=== PATIENT | male | born 1995 | race Hispanic/Latino ===

== ENCOUNTER 2017-12-02 12:13 | Emergency (ER) | payer SELFPAY ==
[2017-12-02] MEDS ORDERED: MAGNE/ALUM HYDROXD 30 ML UCUP ONE (12:43)
[2017-12-02] MEDS ORDERED: LIDOCAINE VISCOUS 2% SOLN 15 ML UDC ONE (12:43)
[2017-12-02] MEDS ORDERED: FAMOTIDINE 20 MG/2 ML VIAL IV ONE (12:43)
[2017-12-02 13:11] LABS: Absolute Lymphocytes (CBC) 1.4 K/uL (0.7-4.9); Absolute Monocytes 0.4 K/uL (0.1-1.3); Absolute Neutrophil 2.5 K/uL (1.8-8.0); Basophils % 0.7 % (0-1.3); Eosinophils % 4.3 % (0-4.4); Hematocrit 46.2 % (39.6-49.0); Lymphocytes % 30.4 % (15.3-44.8); MCV 88.6 fL (80-100); MPV 7.3 fL (7.6-11.3); Monocytes % 8.3 % (3.3-12.3); RBC Red Blood Cell Count 5.22 M/uL (4.33-5.43)
[2017-12-02 13:32] LABS: Albumin 3.7 g/dL (3.4-5.0); Bilirubin Total 0.4 mg/dL (0.2-1.0); Potassium 4.3 mmol/L (3.5-5.1); Protein, Total 7.6 g/dL (6.4-8.2)
--- NOTE | 2017-12-02 13:52 | RAD REPORT ---
EXAM DESCRIPTION: RAD - Chest Single View - 12/02/2017 1:24 pm CLINICAL HISTORY: CHEST PAIN Chest pain. COMPARISON: <Comparisons> FINDINGS: Portable technique limits examination quality. The lungs are grossly clear. The heart is normal in size. No displaced fractures. IMPRESSION: No acute intrathoracic process suspected.
[2017-12-02 15:21] LABS: Urine Blood NEGATIVE (NEG); Urine Glucose NEGATIVE (NEG); Urine Protein NEGATIVE (NEG)
[2017-12-02 15:23] LABS: Barbiturates NEGATIVE (NEGATIVE); Benzodiazepines NEGATIVE (NEGATIVE); Cocaine NEGATIVE (NEGATIVE); METHAMPHETAM NEGATIVE (NEGATIVE); Methadone NEGATIVE (NEGATIVE); Opiates NEGATIVE (NEGATIVE); Phencyclidine NEGATIVE (NEGATIVE); THC Cannibis NEGATIVE (NEGATIVE)
--- NOTE | 2017-12-02 15:50 | ER ---
Nurse's Notes [facility] Name: Coleen Haque III Age: 22 yrs Sex: Male : 1995 Arrival Date: 12/02/2017 Time: 12:15 Bed 16 Private MD: Diagnosis: Other chest pain Presentation: 12/02 12:18 Presenting complaint: Patient states: Sternal chest pain and throat pain since aj night, worse with deep breathing. Transition of care: patient was not received from another setting of care. Onset of symptoms was November 30, 2017. Risk Assessment: Do you want to hurt yourself or someone else? Patient reports no desire to harm self or others. Initial Sepsis Screen: Does the patient meet any 2 criteria? No. Patient's initial sepsis screen is negative. Does the patient have a suspected source of infection? No. Patient's initial sepsis screen is negative. Care prior to arrival: None. 12:18 Method Of Arrival: Ambulatory aj 12:18 Acuity: SYDNIE 4 aj Triage Assessment: 12:19 General: Appears in no apparent distress. comfortable, Behavior is calm, cooperative, aj appropriate for age. Pain: Complains of pain in mid-sternal area. Neuro: Level of Consciousness is awake, alert, obeys commands, Oriented to person, place, time, situation, Appropriate for age. Cardiovascular: Capillary refill < 3 seconds in bilateral fingers Patient's skin is warm and dry. Respiratory: Airway is patent Respiratory effort is even, unlabored, Respiratory pattern is regular, symmetrical. Respiratory: Reports pain with respiration. Derm: Skin is intact, is healthy with good turgor, Skin is pink, warm \T\ dry. normal. Historical: - Allergies: 12:19 No Known Allergies; aj - Home Meds: 12:19 None [Active]; aj - PMHx: 12:19 None; aj - PSHx: 12:19 Knee surgery; aj - Immunization history:: Adult Immunizations up to date. - Social history:: Smoking status: Patient/guardian denies using tobacco, Patient/guardian denies using street drugs, IV drugs. - Ebola Screening: : Patient negative for fever greater than or equal to 101.5 degrees Fahrenheit, and additional compatible Ebola Virus Disease symptoms Patient denies exposure to infectious person Patient denies travel to an Ebola-affected area in the 21 days before illness onset No symptoms or risks identified at this time. - Family history:: Mother has/had diabetes, Grandfather has/had [place] as an older adult. no significant cardiac hx other than grandfather. Screenin:25 Abuse screen: Denies threats or abuse. Denies injuries from another. Nutritional iw screening: No deficits noted. Tuberculosis screening: No symptoms or risk factors identified. Fall Risk IV access (20 points). Assessment: 12:25 General: Appears in no apparent distress. comfortable, Behavior is calm, cooperative, rb1 Denies fever. Pain: Complains of pain in mid-sternal area Pain does not radiate. Pain currently is 5 out of 10 on a pain scale. Pain began Aggravated by pain with respiration. Neuro: Level of Consciousness is awake, alert, obeys commands, Oriented to person, place, time, situation. Neuro: Denies dizziness. Cardiovascular: Capillary refill < 3 seconds is brisk in bilateral fingers. Respiratory: Airway is patent Respiratory effort is even, unlabored, Respiratory pattern is regular, symmetrical. Respiratory: Reports pain with respiration Pain is 5 out of 10 on a pain scale. Denies shortness of breath. GI: Reports nausea, since Acid reflux Patient currently denies diarrhea. : No signs and/or symptoms were reported regarding the genitourinary system. Derm: Skin is dry, Skin is normal, Skin temperature is warm. 13:20 Reassessment: Patient appears in no apparent distress at this time. Patient and/or rb1 family updated on plan of care and expected duration. Pain level reassessed. Patient is alert, oriented x 3, equal unlabored respirations, skin warm/dry/pink. Patient states feeling better. 14:18 Reassessment: Patient appears in no apparent distress at this time. No changes from rb1 previously documented assessment. Friend at bedside. 15:15 Reassessment: Patient appears in no apparent distress at this time. Patient and/or rb1 family updated on plan of care and expected duration. Pain level reassessed. Patient is alert, oriented x 3, equal unlabored respirations, skin warm/dry/pink. 16:13 Reassessment: Patient appears in no apparent distress at this time. Patient and/or iw family updated on plan of care and expected duration. Pain level reassessed. Patient is alert, oriented x 3, equal unlabored respirations, skin warm/dry/pink. Vital Signs: 12:19 BP 144 / 86; Pulse 87; Resp 16; Temp 98.5; Pulse Ox 98% on R/A; Weight 88.45 kg; Height aj 5 ft. 10 in. (177.80 cm); 13:15 BP 124 / 81; Pulse 70; Resp 16; Pulse Ox 98% on R/A; rb1 14:15 BP 122 / 91; Pulse 75; Resp 16; Pulse Ox 99% on R/A; rb1 15:15 BP 106 / 72; Pulse 60; Resp 16; Pulse Ox 99% on R/A; rb1 16:10 BP 121 / 78; Pulse 68; Resp 17; Pulse Ox 100% on R/A; rb1 12:19 Body Mass Index 27.98 (88.45 kg, 177.80 cm) aj ED Course: 12:15 Patient arrived in ED. as 12:19 Triage completed. aj 12:19 Arm band placed on right wrist. Patient placed in an exam room. aj 12:22 Sanjana Yancey NP is PHCP. rh1 12:22 Raul Mae MD is Attending Physician. rh1 12:35 Bell Gonzalez, RN is Primary Nurse. rb1 12:40 EKG done, by ED staff, reviewed by Sanjana Yancey NP. dh3 12:46 Initial lab(s) drawn, by pr, sent to lab. Inserted saline lock: 20 gauge in right dh3 antecubital area, using aseptic technique. Blood collected. 13:24 Chest Single View XRAY In Process Unspecified. EDMS 15:36 UDS Sent. rb1 16:00 Patient has correct armband on for positive identification. secured entrance monitor on. iw 16:26 No provider procedures requiring assistance completed. IV discontinued, intact, iw bleeding controlled, No redness/swelling at site. Pressure dressing applied. Patient maintains SpO2 saturation greater than 95% on room air. Administered Medications: 12:43 Drug: Pepcid 20 mg Route: IVP; Site: right antecubital; rb1 13:00 Follow up: Response: No adverse reaction rb1 12:43 Drug: GI Cocktail without - (Maalox Suspension 30 ml, Lidocaine Liquid 2 % 15 rb1 ml) Route: PO; 13:05 Follow up: Response: No adverse reaction; Marked relief of symptoms rb1 Outcome: 15:50 Discharge ordered by . rh1 16:25 Discharged to home ambulatory, with family. 16:25 Condition: good 16:25 Discharge instructions given to patient, family, Instructed on discharge instructions, follow up and referral plans. Demonstrated understanding of instructions, follow-up care. 16:27 Patient left the ED. iw Signatures: Dispatcher [employer] EDNatividad Barbosa RN RN aj Martinez, Amelia as Williams, Irene, RN RN iw Sanjana Yancey, FILM TESTS CHECKER FILM TESTS CHECKER 1 Bell Gonzalez RN RN [facility] Darshana Baer [facility] Corrections: (The following items were deleted from the chart) 12:41 12:19 Social history: Smoking status: Patient/guardian denies using tobacco, eduard 1
--- NOTE | 2017-12-02 15:51 | EDPHYS ---
Physician Documentation [facility] Name: Coleen Haque III Age: 22 yrs Sex: Male : 1995 Arrival Date: 12/02/2017 Time: 12:15 Bed 16 Private MD: ED Physician Raul Mae HPI: 12/02 12:33 This 22 yrs old Male presents to ER via Ambulatory with complaints of Chest rh1 Pain. 12:33 Onset: The symptoms/episode began/occurred 3 day(s) ago, and became worse 2 day(s) ago. rh1 Associated signs and symptoms: Pertinent positives: chest pain, Pertinent negatives: abdominal pain, congestion, constipation, cough, diarrhea, dysuria, fever, nasal discharge, shortness of breath, sore throat, vomiting, wheezing. Modifying factors: The patient symptoms are alleviated by "acid reflux medicine", the patient symptoms are aggravated by deep inspiration. The patient has not experienced similar symptoms in the past. The patient has not recently seen a physician. 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 He was given a medication for "acid reflux" which relieved the pain. His pain returned yesterday morning and has been constant since. His pain is increased with deep inspiration. He does not have any sore throat, odynophagia, dysphagia. He denies any SOB, diaphoresis, N/V, abdominal pain, paresthesias, recent illness.. Historical: - Allergies: 12:19 No Known Allergies; aj - Home Meds: 12:19 None [Active]; aj - PMHx: 12:19 None; - PSHx: 12:19 Knee surgery; aj - Immunization history:: Adult Immunizations up to date. - Social history:: Smoking status: Patient/guardian denies using tobacco, Patient/guardian denies using street drugs, IV drugs. - Ebola Screening: : Patient negative for fever greater than or equal to 101.5 degrees Fahrenheit, and additional compatible Ebola Virus Disease symptoms Patient denies exposure to infectious person Patient denies travel to an Ebola-affected area in the 21 days before illness onset No symptoms or risks identified at this time. - Family history:: Mother has/had diabetes, Grandfather has/had [place] as an older adult. no significant cardiac hx other than grandfather. ROS: 12:33 Constitutional: Negative for fever, chills rh1 12:33 ENT: Negative for sore throat, difficulty swallowing, difficulty handling secretions, hoarseness. 12:33 Neck: Negative for pain with movement, pain at rest. 12:33 Cardiovascular: Positive for chest pain, Negative for edema, orthopnea, palpitations. 12:33 Respiratory: Negative for cough, dyspnea on exertion, shortness of breath, wheezing. 12:33 Abdomen/GI: Negative for abdominal pain, nausea, vomiting, and diarrhea. 12:33 Back: Negative for decreased range of motion, pain at rest, pain with movement, radiated pain. 12:33 MS/extremity: Negative for decreased range of motion, pain, paresthesias, swelling, tenderness. 12:33 Skin: Negative for diaphoresis. 12:33 Neuro: Negative for altered mental status, dizziness, headache, loss of consciousness, numbness, syncope, near syncope, tingling, weakness. Exam: 12:39 Constitutional: This is a well developed, well nourished patient who is awake, alert, rh1 and in no acute distress. Head/Face: Normocephalic, atraumatic. Neck: Trachea midline, and no cervical lymphadenopathy. Supple, full range of motion without nuchal rigidity. No Meningismus. Chest/axilla: Normal chest wall appearance and motion. Nontender with no deformity. No lesions are appreciated. Cardiovascular: Regular rate and rhythm with a normal S1 and S2. No gallops, murmurs, or rubs. No JVD. No pulse deficits. Respiratory: Lungs have equal breath sounds bilaterally, clear to auscultation. No rales, rhonchi or wheezes noted. No increased work of breathing. Abdomen/GI: Soft, non-tender, with normal bowel sounds. No distension. No guarding or rebound. No evidence of tenderness throughout. Back: No spinal tenderness. No costovertebral tenderness. Full range of motion. Skin: Warm, dry with normal turgor. Normal color with no rashes, no lesions, and no evidence of cellulitis. MS/ Extremity: Pulses equal, no cyanosis. Neurovascular intact. Full, normal range of motion. 12:39 ENT: Mouth: is normal, no lip abnormalities, no mucosal abnormalities, Posterior pharynx: is normal, airway is patent, no erythema, no exudate, no peritonsilar mass, no pooling of secretions, no swelling, normal tonsil apperance, normal sized tonsils, normal uvula appearance, normal uvula size, tonsils 2+ bilaterally, Voice: is normal. 12:39 Neuro: Orientation: is normal, to person, place \\T\\ time. Mentation: is normal, lucid, able to follow commands, Motor: is normal, moves all fours, strength is 5/5 in all extremities, Sensation: is normal, no obvious gross deficits, numbness, is not appreciated, tingling, is not appreciated, Gait: is steady, at a normal pace, without difficulty. Vital Signs: 12:19 BP 144 / 86; Pulse 87; Resp 16; Temp 98.5; Pulse Ox 98% on R/A; Weight 88.45 kg; Height aj 5 ft. 10 in. (177.80 cm); 13:15 BP 124 / 81; Pulse 70; Resp 16; Pulse Ox 98% on R/A; rb1 14:15 BP 122 / 91; Pulse 75; Resp 16; Pulse Ox 99% on R/A; rb1 15:15 BP 106 / 72; Pulse 60; Resp 16; Pulse Ox 99% on R/A; rb1 16:10 BP 121 / 78; Pulse 68; Resp 17; Pulse Ox 100% on R/A; rb1 12:19 Body Mass Index 27.98 (88.45 kg, 177.80 cm) aj MDM: 12:32 Patient medically screened. rh1 12:42 ED course: PERC = 0. rh1 15:49 Data reviewed: vital signs, nurses notes, lab test result(s), EKG, radiologic studies, rh1 plain films, and as a result, I will discharge patient. Special discussion: Based on the patient's history, exam, and Dx evaluation, there is no indication for emergent intervention or inpatient Tx. It is understood by the patient/guardian that if the Sx's persist or worsen they need to return immediately for re-evaluation. 15:49 Data interpreted: Pulse oximetry: on room air is 99 %. Interpretation: normal. rh1 Counseling: I had a detailed discussion with the patient and/or guardian regarding: the historical points, exam findings, and any diagnostic results supporting the discharge/admit diagnosis, lab results, radiology results, the need for outpatient follow up, a family practitioner, to return to the emergency department if symptoms worsen or persist or if there are any questions or concerns that arise at home. 15:49 Response to treatment: the patient's symptoms have resolved after treatment, the 1 patient's pain is gone. 12/02 12:31 Order name: CBC with Diff [facility] 12/02 12:31 Order name: CMP [facility] 12/02 12:31 Order name: Troponin (emerg Dept Use Only) [facility] 12/02 12:31 Order name: UDS [facility] 12/02 12:31 Order name: CBC with Automated Diff; Complete Time: 13:24 [facility] 12/02 12:31 Order name: Comprehensive Metabolic Panel; Complete Time: 13:34 [facility] 12/02 12:31 Order name: Chest Single View XRAY; Complete Time: 13:57 [facility] 12/02 12:31 Order name: EKG - Nurse/Tech; Complete Time: 12:36 [facility] 12/02 12:31 Order name: IV Start; Complete Time: 12:47 [facility] 12/02 12:31 Order name: Troponin (Emerg Dept Use Only); Complete Time: 13:34 [facility] 12/02 12:31 Order name: Urine Drug Screen; Complete Time: 15:30 [facility] 12/02 15:12 Order name: Urine Dipstick--Ancillary (enter results); Complete Time: 15:30 12/02 12:31 Order name: Cardiac monitoring; Complete Time: 12:47 [facility] 12/02 13:57 Order name: Misc. Order: please obtain urine; Complete Time: 15:36 [facility] Administered Medications: 12:43 Drug: Pepcid 20 mg Route: IVP; Site: right antecubital; rb1 13:00 Follow up: Response: No adverse reaction rb1 12:43 Drug: GI Cocktail without - (Maalox Suspension 30 ml, Lidocaine Liquid 2 % 15 rb1 ml) Route: PO; 13:05 Follow up: Response: No adverse reaction; Marked relief of symptoms rb1 Disposition: 17:12 Co-signature as Attending Physician, Raul Mae MD I agree with the assessment and kdr plan of care. Disposition: 12/02/17 15:50 Discharged to Home. Impression: Other chest pain. - Condition is Stable. - Discharge Instructions: Nonspecific Chest Pain. - Work release form, Medication Reconciliation Form, Thank You Letter, Antibiotic Education, Prescription Opioid Use form. - Follow up: Private Physician; When: 1 - 2 days; Reason: Recheck today's complaints, Continuance of care, Re-evaluation by your physician. Follow up: Emergency Department; When: As needed; Reason: Fever > 102 F, If symptoms return, Trouble breathing, Worsening of condition. - Problem is new. - Symptoms are resolved. 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 He was given a medication for "acid reflux" which relieved the pain. His pain returned yesterday morning and has been constant since. His pain is increased with deep inspiration. He denies any SOB, diaphoresis, N/V, abdominal pain, paresthesias, recent illness.. [facility] 12:41 12:19 Social history: Smoking status: Patient/guardian denies using tobacco, [facility] 15:56 15:49 Data interpreted: Pulse oximetry: on room air is 99 %. Interpretation: normal. [facility] 15:56 15:49 Counseling: I had a detailed discussion with the patient and/or guardian [facility] regarding: the historical points, exam findings, and any diagnostic results supporting the discharge/admit diagnosis, lab results, radiology results, the need for outpatient follow up, a family practitioner, to return to the emergency department if symptoms worsen or persist or if there are any questions or concerns that arise at home, [facility] 16:27 15:50 12/02/2017 15:50 Discharged to Home. Impression: Other chest pain. Condition is iw Stable. Forms are Medication Reconciliation Form, Thank You Letter, Antibiotic Education, Prescription Opioid Use. Follow up: Private Physician; When: 1 - 2 days; Reason: Recheck today's complaints, Continuance of care, Re-evaluation by your physician. Follow up: Emergency Department; When: As needed; Reason: Fever > 102 F, If symptoms return, Trouble breathing, Worsening of condition. Problem is new. Symptoms are resolved. rh1
--- NOTE | 2017-12-03 09:34 | EKG ---
Test Date: 2017-12-02 Test Time: 12:33:20 Academic Advisor: MARIS MEASUREMENT RESULTS: Intervals: Rate: 69 OR: 134 QRSD: 88 QT: 370 QTc: 396 [place]: P: 31 OR: 134 QRS: 58 T: 18 INTERPRETIVE STATEMENTS: Normal sinus rhythm Nonspecific T wave abnormality Abnormal ECG No previous ECG available for comparison Electronically Signed On 12-03-17 09:33:33 CDT by Orion Faith
== END 2017-12-02 16:27 | disposition home or self-care (01) ==
LOC: ER 12:13
DX: R07.89 Other chest pain (principal)
CPT/HCPCS: 36415; 71045; 80053; 80307; 81003; 84484; 85025; 93005; 96374; 99285

== ENCOUNTER 2017-12-31 10:58 | Emergency (ER) | payer SELFPAY ==
[2017-12-31] MEDS ORDERED: BUPIVACAINE 0.5% PF 10 ML VIAL ONE (13:27)
--- NOTE | 2017-12-31 15:28 | EDPHYS ---
Physician Documentation [facility] Name: Coleen Haque III Age: 22 yrs Sex: Male : 1995 Arrival Date: 12/31/2017 Time: 11:00 Bed 12 Private MD: None, None ED Physician Sabas Kaplan HPI: 12/31 13:16 This 22 yrs old Male presents to ER via Ambulatory with complaints of TOE PAIN.m 13:16 The patient presents with pain, that is acute. The complaints affect the Left first jmm toenail. Onset: The symptoms/episode began/occurred gradually, 3 day(s) ago. Associated signs and symptoms: Pertinent positives: swelling. This is a 22 year old male with no chronic medical conditions that presents to the ED with right great toe swelling around the nail plate beginning approx 3 days ago. patient denies fever but admits to purulent drainage. . Historical: - Allergies: 11:38 No Known Allergies; ph - Home Meds: 11:38 None [Active]; ph - PMHx: 11:38 None; ph - PSHx: 11:38 ACL repair; Appendectomy; ph - Immunization history:: Adult Immunizations up to date. - Social history:: Smoking status: Patient/guardian denies using tobacco. - Ebola Screening: : No symptoms or risks identified at this time. ROS: 13:16 Constitutional: Negative for fever, chills, and weight loss. jmm 13:16 MS/extremity: Positive for pain. 13:16 Skin: Positive for erythema. 13:16 All other systems are negative. Exam: 13:16 Head/Face: atraumatic. Chest/axilla: Normal chest wall appearance and motion. [facility] Cardiovascular: Regular rate and rhythm. No edema appreciated Respiratory: Normal respirations, no respiratory distress appreciated 13:16 Constitutional: The patient appears in no acute distress, alert, awake. 13:16 Musculoskeletal/extremity: ROM: intact in all extremities. 13:16 Skin: erythema noted surrounding the right great toe nail plate, no purulent drainage is appreciated. . 13:16 Neuro: Orientation: is normal, Mentation: is normal, Memory: is normal. 13:16 Psych: Behavior/mood is pleasant, cooperative. Vital Signs: 11:37 BP 125 / 86; Pulse 88; Resp 18; Temp 97.6(O); Pulse Ox 98% on R/A; Weight 88.45 kg; ph Height 5 ft. 10 in. (177.80 cm); Pain 10/10; 15:45 BP 120 / 84; Pulse 78; Resp 20; Temp 98; Pulse Ox 98% ; Pain 3/10; dm5 11:37 Body Mass Index 27.98 (88.45 kg, 177.80 cm) ph Procedures: 15:24 Nerve block: (digital) of right first toe Amount: 5 mls were injected, Set up for [facility] procedure. Performed by Agusto KC Patient tolerated well. Performed toenail removal. scissors used to cut through nail plate. Partial nail removal using hemostats. MDM: 13:09 Patient medically screened. [facility] 15:27 Data reviewed: vital signs, nurses notes. Counseling: I had a detailed discussion with [facility] the patient and/or guardian regarding: the historical points, exam findings, and any diagnostic results supporting the discharge/admit diagnosis, the need for outpatient follow up, to return to the emergency department if symptoms worsen or persist or if there are any questions or concerns that arise at home. Administered Medications: 14:30 Drug: Marcaine (0.5 %) 20 ml Volume: 10 ml; Route: Infiltration; rosalee Disposition: 01/01 06:48 Co-signature as Attending Physician, Sabas Kaplan MD I agree with the assessment and [facility] plan of care. Disposition: 12/31/17 15:28 Discharged to Home. Impression: Ingrown Toenail, Cellulitis of the right great toe. - Condition is Stable. - Discharge Instructions: Ingrown Toenail. - Prescriptions for Ultracet 37.5- 325 mg Oral Tablet - take 1 tablet by ORAL route every 6 hours - for up to 5 days; do not exceed 8 tablets per day.; 12 tablet. Bactrim DS 800- 160 mg Oral Tablet - take 1 tablet by ORAL route every 12 hours for 10 days; 20 tablet. - Work release form, Medication Reconciliation Form, Thank You Letter, Antibiotic Education, Prescription Opioid Use form. - Follow up: Rafael Rg DPM; When: 1 - 2 days; Reason: Recheck today's complaints, Continuance of care, Re-evaluation by your physician. Signatures: Juliana Damico, NED MARINO dm5 Sabas Kaplan MD MD cha Mickail, Joel, PA PA [facility] Nela Kellogg, RN RN ph Corrections: (The following items were deleted from the chart) 12/31 15: 13:16 This is a 22 year old male with no chronic medical conditions that presents to [facility] the ED with left great toe swelling around the nail plate beginning approx 3 days ago. patient denies fever but admits to purulent drainage. . [facility] : 13:16 Skin: erythema noted surrounding the left great toe nail plate, no purulent [facility] drainage is appreciated. . [facility] 15:46 15:28 12/31/2017 15:28 Discharged to Home. Impression: Ingrown Toenail; Cellulitis of dm5 the right great toe. Condition is Stable. Forms are Medication Reconciliation Form, Thank You Letter, Antibiotic Education, Prescription Opioid Use. Follow up: Dr. Rafael gR; When: 1 - 2 days; Reason: Recheck today's complaints, Continuance of care, Re-evaluation by your physician. [facility]
--- NOTE | 2017-12-31 15:28 | ER ---
Nurse's Notes [facility] Name: Coleen Haque III Age: 22 yrs Sex: Male : 1995 Arrival Date: 12/31/2017 Time: 11:00 Bed 12 Private MD: None, None Diagnosis: Ingrown Toenail;Cellulitis of the right great toe Presentation: 12/31 11:36 Presenting complaint: Patient states: " I had an ingrown toenail on my R foot and a few ph days ago I tried to take it off. Now I think it's infected, it's red and swollen and there is puss coming out." Reports symptoms in R great toe, denies fever, N/V/D. Transition of care: patient was not received from another setting of care. Onset of symptoms was December 31, 2017. Risk Assessment: Do you want to hurt yourself or someone else? Patient reports no desire to harm self or others. Initial Sepsis Screen: Does the patient meet any 2 criteria? No. Patient's initial sepsis screen is negative. Does the patient have a suspected source of infection? No. Patient's initial sepsis screen is negative. Care prior to arrival: None. 11:36 Method Of Arrival: Ambulatory ph 11:36 Acuity: SYDNIE 4 ph Historical: - Allergies: 11:38 No Known Allergies; ph - Home Meds: 11:38 None [Active]; ph - PMHx: 11:38 None; ph - PSHx: 11:38 ACL repair; Appendectomy; ph - Immunization history:: Adult Immunizations up to date. - Social history:: Smoking status: Patient/guardian denies using tobacco. - Ebola Screening: : No symptoms or risks identified at this time. Screenin:45 Abuse screen: Denies threats or abuse. Denies injuries from another. Nutritional dm5 screening: No deficits noted. Tuberculosis screening: No symptoms or risk factors identified. Fall Risk None identified. Assessment: 13:20 General: Appears in no apparent distress. Behavior is calm, cooperative. Pain: dm5 Complains of pain in Right first toenail. Cardiovascular: Reports None. Respiratory: Airway is patent Respiratory effort is even, unlabored, relaxed, Respiratory pattern is regular. Musculoskeletal: Swelling absent Reports pain in Right first toenail. Vital Signs: 11:37 BP 125 / 86; Pulse 88; Resp 18; Temp 97.6(O); Pulse Ox 98% on R/A; Weight 88.45 kg; ph Height 5 ft. 10 in. (177.80 cm); Pain 10/10; 15:45 BP 120 / 84; Pulse 78; Resp 20; Temp 98; Pulse Ox 98% ; Pain 3/10; dm5 11:37 Body Mass Index 27.98 (88.45 kg, 177.80 cm) ph ED Course: 11:00 Patient arrived in ED. sb2 11:01 None, None is Private Physician. sb2 11:37 Triage completed. ph 11:38 Arm band placed on Patient placed in waiting room, Patient notified of wait time. 13:08 Agusto Narayanan PA is [facility]. [facility] 13:08 Sabas Kaplan MD is Attending Physician. [facility] 13:20 Juliana Damico, RN is Primary Nurse. dm5 15:27 Rafael Rg DPM is Referral Physician. [facility] 15:45 Patient has correct armband on for positive identification. dm5 15:45 No provider procedures requiring assistance completed. Patient did not have IV access dm5 during this emergency room visit. Administered Medications: 14:30 Drug: Marcaine (0.5 %) 20 ml Volume: 10 ml; Route: Infiltration; dm5 Outcome: 15:28 Discharge ordered by . [facility] 15:45 Discharged to home ambulatory. dm5 15:45 Condition: good 15:45 Discharge instructions given to patient, Instructed on discharge instructions, follow up and referral plans. medication usage, Demonstrated understanding of instructions, follow-up care, medications, wound care, Prescriptions given X 2. 15:46 Patient left the ED. dm5 Signatures: Juliana Damico, RN RN Agusto Almanzar PA PA jmm Hall, Patricia RN RN Nataliya Hernandez sb2 Corrections: (The following items were deleted from the chart) 11:38 11:38 Arm band placed on Patient placed in an exam room, Patient notified of wait time ph ph
== END 2017-12-31 15:46 | disposition home or self-care (01) ==
LOC: ER 10:58
PROC: 0HBRXZZ Excision of Toe Nail, External Approach (ICD-10-PCS; principal; 2017-12-31)
DX: L60.0 Ingrowing nail (principal)
CPT/HCPCS: 64450; 99283

== ENCOUNTER 2018-01-05 21:22 | Emergency (ER) | payer SELFPAY ==
[2018-01-05] MEDS ORDERED: IBUPROFEN 400 MG TAB ONE (21:57)
--- NOTE | 2018-01-05 23:02 | EDPHYS ---
Physician Documentation [facility] Name: Coleen Haque III Age: 22 yrs Sex: Male : 1995 Arrival Date: 01/05/2018 Time: 21:23 Bed 23 Private MD: ED Physician Sadiq Anaya HPI: 01/05 22:00 This 22 yrs old Male presents to ER via Ambulatory with complaints of Toe cp Injury. 22:00 The patient presents with a contusion, pain, that is acute. The complaints affect the cp right great toe. 22:00 Context: The problem was sustained at home, resulted from stubbing toe on the patient cp can fully bear weight, the patient is able to ambulate. Onset: The symptoms/episode began/occurred today. 22:00 Patient reports having partial nail removal of right great toe earlier this week. cp Historical: - Allergies: 21:33 No Known Allergies; aj1 - Home Meds: 21:33 Bactrim DS Oral [Active]; aj1 - PMHx: 21:33 None; aj1 - PSHx: 21:33 Appendectomy; acl repair; aj1 - Immunization history:: Flu vaccine is up to date. - Social history:: Smoking status: Patient/guardian denies using tobacco. - Ebola Screening: : Patient denies travel to an Ebola-affected area in the 21 days before illness onset. ROS: 22:05 Constitutional: Negative for body aches, chills, fever, poor PO intake. cp 22:05 Eyes: Negative for injury, pain, redness, and discharge. cp 22:05 ENT: Negative for drainage from ear(s), ear pain, sore throat, difficulty swallowing, difficulty handling secretions. 22:05 Respiratory: Negative for cough, shortness of breath, wheezing. 22:05 Abdomen/GI: Negative for abdominal pain, nausea, vomiting, and diarrhea. 22:05 MS/extremity: Positive for pain, tenderness, of the right great toe. 22:05 All other systems are negative. Exam: 22:10 Constitutional: The patient appears in no acute distress, alert, awake, well developed, cp well nourished. 22:10 Head/Face: Normocephalic, atraumatic. cp 22:10 Eyes: Periorbital structures: appear normal, Conjunctiva: normal, no exudate, no injection, Lids and lashes: appear normal, bilaterally. 22:10 ENT: External ear(s): are unremarkable, Nose: is normal, Mouth: is normal, Posterior pharynx: is normal, airway is patent. 22:10 Chest/axilla: Inspection: normal. 22:10 Cardiovascular: Rate: tachycardic, Edema: is not appreciated. 22:10 Respiratory: the patient does not display signs of respiratory distress, Respirations: normal, no use of accessory muscles, no retractions, no splinting, no tachypnea. 22:10 Musculoskeletal/extremity: Extremities: grossly normal except: noted in the right great toe: pain, swelling, tenderness, There is no evidence of erythema, cellulitis. Vital Signs: 21:31 Pulse 117; Resp 18; Temp 99.3(O); Pulse Ox 97% on R/A; Weight 88.45 kg (R); Height 5 aj1 ft. 10 in. (177.80 cm) (R); Pain 9/10; 22:30 BP 139 / 92; Pulse 112; Resp 18; Pulse Ox 98% ; Pain 8/10; cr4 23:22 BP 116 / 73; Pulse 97; Resp 16; Temp 98.6; Pulse Ox 97% ; Pain 6/10; cr4 21:31 Body Mass Index 27.98 (88.45 kg, 177.80 cm) aj1 MDM: 21:37 Patient medically screened. cp 22:00 Differential diagnosis: fracture, cellulitis, contusion. cp 23:00 Data reviewed: vital signs, nurses notes, radiologic studies, plain films. cp 23:00 Test interpretation: by ED physician or midlevel provider: plain radiologic studies. cp Counseling: I had a detailed discussion with the patient and/or guardian regarding: the historical points, exam findings, and any diagnostic results supporting the discharge/admit diagnosis, radiology results, to return to the emergency department if symptoms worsen or persist or if there are any questions or concerns that arise at home. Response to treatment: the patient's symptoms have mildly improved after treatment, and as a result, I will discharge patient. ED course: VSS. Xrays negative for acute fracture. Crutches given. Recommend RICE and will discharge to home for continued monitoring. 01/05 22:06 Order name: Foot Right 3 View EDMS 01/05 22:19 Order name: Ice pack; Complete Time: 22:37 cp 01/05 23:00 Order name: Wound dressing: clean and redress; Complete Time: 23:25 cp 01/05 23:00 Order name: Crutches; Complete Time: 23:25 cp Administered Medications: 21:54 Drug: Ibuprofen 800 mg Route: PO; rv 22:30 Follow up: Response: No adverse reaction; Pain is decreased cr4 Disposition: 01/05/18 23:01 Discharged to Home. Impression: Contusion of right great toe without damage to nail. - Condition is Stable. - Discharge Instructions: Contusion. - Prescriptions for Naprosyn 500 mg Oral Tablet - take 1 tablet by ORAL route 2 times per day take with food; 20 tablet. - Medication Reconciliation Form, Thank You Letter, Antibiotic Education, Prescription Opioid Use form. - Follow up: Private Physician; When: 2 - 3 days; Reason: Recheck today's complaints. - Problem is new. - Symptoms have improved. Addendum: 01/08/2018 10:16 Co-signature as Attending Physician, Sadiq Anaya MD. g s Signatures: Dispatcher [employer] EDDE Mariel Caban RN RN aj1 Ene Bobo RN RN cr4 Sabas Demarco PA PA Sadiq Anaya MD MD Yong Nichole RN RN rv Corrections: (The following items were deleted from the chart) 01/05 22:06 21:47 Foot Left 3 View+RAD.RAD.BRZ ordered. EDDE EDMS 22:08 22:00 Foot Right 3 View+RAD.RAD.BRZ ordered. EDDE EDMS 23:37 23:01 01/05/2018 23:01 Discharged to Home. Impression: Contusion of right great toe cr4 without damage to nail. Condition is Stable. Forms are Medication Reconciliation Form, Thank You Letter, Antibiotic Education, Prescription Opioid Use. Follow up: Private Physician; When: 2 - 3 days; Reason: Recheck today's complaints. Problem is new. Symptoms have improved. cp
--- NOTE | 2018-01-05 23:02 | ER ---
Nurse's Notes [facility] Name: Coleen Haque III Age: 22 yrs Sex: Male : 1995 Arrival Date: 01/05/2018 Time: 21:23 Bed 23 Private MD: Diagnosis: Contusion of right great toe without damage to nail Presentation: 01/05 21:31 Presenting complaint: Patient states: He had an ingrown toe nail removed and today when aj1 he got out of the shower and he hit his toe, which caused him a lot of pain and made him feel dizzy and his toe is still hurting. Denies fever. Transition of care: patient was not received from another setting of care. Onset of symptoms was January 05, 2018. Risk Assessment: Do you want to hurt yourself or someone else? Patient reports no desire to harm self or others. Initial Sepsis Screen: Does the patient meet any 2 criteria? No. Patient's initial sepsis screen is negative. Does the patient have a suspected source of infection? No. Patient's initial sepsis screen is negative. Care prior to arrival: None. 21:31 Method Of Arrival: Ambulatory [facility] 21:31 Acuity: SYDNIE 3 aj1 Triage Assessment: 21:33 General: Appears in no apparent distress. Behavior is calm, cooperative, appropriate aj1 for age. Pain: Complains of pain in Right first toenail Pain currently is 9 out of 10 on a pain scale. Neuro: Level of Consciousness is awake, alert, obeys commands. Cardiovascular: Patient's skin is warm and dry. Respiratory: Airway is patent Respiratory effort is even, unlabored, Respiratory pattern is regular, symmetrical. Historical: - Allergies: 21:33 No Known Allergies; aj1 - Home Meds: 21:33 Bactrim DS Oral [Active]; aj1 - PMHx: 21:33 None; aj1 - PSHx: 21:33 Appendectomy; acl repair; aj1 - Immunization history:: Flu vaccine is up to date. - Social history:: Smoking status: Patient/guardian denies using tobacco. - Ebola Screening: : Patient denies travel to an Ebola-affected area in the 21 days before illness onset. Screenin:34 Abuse screen: Denies threats or abuse. Nutritional screening: No deficits noted. cr4 Tuberculosis screening: No symptoms or risk factors identified. Fall Risk None identified. Assessment: 21:45 General: Appears uncomfortable, slender, well groomed, Behavior is calm, cooperative. cr4 Pain: Complains of pain in right toe Pain: Pain currently is 10 out of 10 on a pain scale. at worst was 10 out of 10 on a pain scale. Quality of pain is described as aching, tender, Aggravated by exercise, repositioning, Noted to be grimacing, guarding. Neuro: Reports dizziness, since one hour ago. a syncopal episode Denies numbness headache. Cardiovascular: Denies diaphoresis, nausea, palpitations, shortness of breath, Heart tones S1 S2 Rhythm is sinus tachycardia. Respiratory: Breath sounds are clear bilaterally. GI: Patient currently denies nausea, pain, vomiting. : Denies burning with urination, urinary frequency. EENT: No deficits noted. Derm: Skin Wound noted right toe nail Wound is area to lateral right toe nail, moist pale in color.patient reports drainage of pus. Reports. Musculoskeletal: Circulation, motion, and sensation intact. Capillary refill < 3 seconds, toes. 22:00 Reassessment: No changes from previously documented assessment. Patient and/or family cr4 updated on plan of care and expected duration. Pain level reassessed. Patient is alert, oriented x 3, equal unlabored respirations, skin warm/dry/pink. 23:00 Reassessment: No changes from previously documented assessment. Patient and/or family cr4 updated on plan of care and expected duration. Pain level reassessed. Patient is alert, oriented x 3, equal unlabored respirations, skin warm/dry/pink. ice pack removed patient tolerated well but wanted a break from it.. Vital Signs: 21:31 Pulse 117; Resp 18; Temp 99.3(O); Pulse Ox 97% on R/A; Weight 88.45 kg (R); Height 5 aj1 ft. 10 in. (177.80 cm) (R); Pain 9/10; 22:30 BP 139 / 92; Pulse 112; Resp 18; Pulse Ox 98% ; Pain 8/10; cr4 23:22 BP 116 / 73; Pulse 97; Resp 16; Temp 98.6; Pulse Ox 97% ; Pain 6/10; cr4 21:31 Body Mass Index 27.98 (88.45 kg, 177.80 cm) [facility] ED Course: 21:23 Patient arrived in ED. am2 21:31 Arm band placed on Patient placed in an exam room. aj1 21:33 Triage completed. aj1 21:37 Sabas Demarco PA is PHCP. cp 21:37 Sadiq Anaya MD is Attending Physician. cp 22:00 Patient has correct armband on for positive identification. Side rails up X2. cr4 22:09 Foot Right 3 View In Process Unspecified. EDMS 23:25 No provider procedures requiring assistance completed. Patient did not have IV access cr4 during this emergency room visit. Dressings: Kerlix 4X4s X 1; right greater toe. Administered Medications: 21:54 Drug: Ibuprofen 800 mg Route: PO; rv 22:30 Follow up: Response: No adverse reaction; Pain is decreased cr4 Outcome: 23:00 Discharge instructions given to patient, significant other, Instructed on discharge cr4 instructions, follow up and referral plans. medication usage, Demonstrated understanding of instructions, follow-up care, medications, wound care, crutch walking, Prescriptions given X 1. 23:01 Discharge ordered by MD. cp 23:01 Discharged to home ambulatory, with crutches. cr4 23:01 Condition: stable 23:37 Patient left the ED. cr4 Signatures: Dispatcher [employer] EDMS Mariel Caban RN RN aj1 Ene Bobo RN RN cr4 Sabas Demarco PA PA cp Moreno, Amanda am2 Yong Nichole RN RN rv Corrections: (The following items were deleted from the chart) 21:35 21:31 Acuity: SYDNIE 4 aj1 aj1 23:32 22:00 Reassessment: No changes from previously documented assessment. Patient and/or cr4 family updated on plan of care and expected duration. Pain level reassessed. Patient is alert, oriented x 3, equal unlabored respirations, skin warm/dry/pink. cr4 23:34 22:00 Reassessment: No changes from previously documented assessment. Patient and/or cr4 family updated on plan of care and expected duration. Pain level reassessed. Patient is alert, oriented x 3, equal unlabored respirations, skin warm/dry/pink. cr4 23:34 23:00 Reassessment: No changes from previously documented assessment. Patient and/or cr4 family updated on plan of care and expected duration. Pain level reassessed. Patient is alert, oriented x 3, equal unlabored respirations, skin warm/dry/pink. cr4
--- NOTE | 2018-01-06 07:43 | RAD REPORT ---
EXAM DESCRIPTION: RAD - Foot Right 3 View - 01/05/2018 10:09 pm CLINICAL HISTORY: great toe pain<Reason For Exam>great toe pain COMPARISON: No comparisons<Comparisons> FINDINGS: No fracture, dislocation or periosteal reaction. No acute bone or joint finding. No air or foreign body in the soft tissues. IMPRESSION: Negative right foot examination.
== END 2018-01-05 23:37 | disposition home or self-care (01) ==
LOC: ER 21:22
DX: S90.111A Contusion of right great toe without damage to nail, initial encounter (principal); W22.8XXA Striking against or struck by other objects, initial encounter; Y93.9 Activity, unspecified; Y92.009 Unspecified place in unspecified non-institutional (private) residence as the place of occurrence of the external cause
CPT/HCPCS: 99284

== ENCOUNTER 2018-07-19 22:14 | Emergency (ER) | payer SELFPAY ==
--- NOTE | 2018-07-19 22:49 | EDPHYS ---
Physician Documentation [facility] Name: Coleen Haque III Age: 23 yrs Sex: Male : 1995 Arrival Date: 07/19/2018 Time: 22:17 Bed 12 Private MD: ED Physician Sadiq Anaya HPI: 07/19 23:31 This 23 yrs old Male presents to ER via Ambulatory with complaints of Insect kb Bite. 23:31 The patient presents with an abscess of the right quadriceps. Description: kb erythematous, swollen, warm. Onset: The symptoms/episode began/occurred 2 day(s) ago. Possible cause(s): unknown. Associated signs and symptoms: Pertinent positives: erythema, swelling, Pertinent negatives: discharge, drainage, foreign body sensation, fever, headache, nausea, shortness of breath, vomiting. Modifying factors: the symptoms are alleviated by nothing, the symptoms are aggravated by pressure, squeezing the lesion and expressing the contents, touching. Severity of symptoms: At their worst the symptoms were mild, moderate, in the emergency department the symptoms are unchanged. The patient has not experienced similar symptoms in the past. The patient has not recently seen a physician. - Immunization history:: Last tetanus immunization: up to date Flu vaccine is up to date. - Social history:: Smoking status: Patient/guardian denies using tobacco, Patient/guardian denies using alcohol, street drugs. - Ebola Screening: : Patient negative for fever greater than or equal to 101.5 degrees Fahrenheit, and additional compatible Ebola Virus Disease symptoms Patient denies exposure to infectious person Patient denies travel to an Ebola-affected area in the 21 days before illness onset. ROS: 23:30 Constitutional: Negative for fever, chills, and weight loss, Cardiovascular: Negative kb for chest pain, palpitations, and edema, Respiratory: Negative for shortness of breath, cough, wheezing, and pleuritic chest pain, Abdomen/GI: Negative for abdominal pain, nausea, vomiting, diarrhea, and constipation, MS/Extremity: Negative for injury and deformity, Neuro: Negative for headache, weakness, numbness, tingling, and seizure. 23:30 Skin: Positive for abscess, cellulitis, erythema, swelling. Exam: 23:30 Constitutional: This is a well developed, well nourished patient who is awake, alert, kb and in no acute distress. Head/Face: Normocephalic, atraumatic. Chest/axilla: Normal chest wall appearance and motion. Nontender with no deformity. No lesions are appreciated. Cardiovascular: Regular rate and rhythm with a normal S1 and S2. No gallops, murmurs, or rubs. Normal PMI, no JVD. No pulse deficits. Respiratory: Lungs have equal breath sounds bilaterally, clear to auscultation and percussion. No rales, rhonchi or wheezes noted. No increased work of breathing, no retractions or nasal flaring. Abdomen/GI: Soft, non-tender, with normal bowel sounds. No distension or tympany. No guarding or rebound. No evidence of tenderness throughout. MS/ Extremity: Pulses equal, no cyanosis. Neurovascular intact. Full, normal range of motion. Neuro: Awake and alert, GCS 15, oriented to person, place, time, and situation. Cranial nerves II-XII grossly intact. Motor strength 5/5 in all extremities. Sensory grossly intact. Cerebellar exam normal. Normal gait. 23:30 Skin: abscess, that is small, of the right quadriceps, with induration, with surrounding cellulitis, that is mild. Vital Signs: 22:30 BP 128 / 83; Pulse 98; Resp 18; Temp 98.2(O); Pulse Ox 98% on R/A; Weight 94.35 kg (R); fc Height 5 ft. 11 in. (180.34 cm) (R); Pain 8/10; 22:30 Body Mass Index 29.01 (94.35 kg, 180.34 cm) fc MDM: 22:48 Patient medically screened. kb 23:30 Data reviewed: vital signs, nurses notes. Data interpreted: Pulse oximetry: on room air kb is 98 %. Interpretation: normal. Counseling: I had a detailed discussion with the patient and/or guardian regarding: the historical points, exam findings, and any diagnostic results supporting the discharge/admit diagnosis, the need for outpatient follow up, a family practitioner, to return to the emergency department if symptoms worsen or persist or if there are any questions or concerns that arise at home. Administered Medications: 22:58 Drug: Bactrim (160 mg-800 mg (DS) 1 tablet Route: PO; 23:13 Follow up: Response: No adverse reaction; No change in condition 22:58 Drug: KeFLEX 500 mg Route: PO; fc 23:13 Follow up: Response: No adverse reaction; No change in condition Disposition: 07/19/18 22:49 Discharged to Home. Impression: Cutaneous abscess of right lower limb. - Condition is Stable. - Discharge Instructions: Skin Abscess, [id number]. - Prescriptions for Keflex 500 mg Oral Capsule - take 1 capsule by ORAL route every 8 hours for 7 days; 21 capsule. Bactrim DS 800- 160 mg Oral Tablet - take 1 tablet by ORAL route every 12 hours for 7 days; 14 tablet. - Medication Reconciliation Form, Thank You Letter, Antibiotic Education, Prescription Opioid Use form. - Follow up: Emergency Department; When: As needed; Reason: Worsening of condition. Follow up: Private Physician; When: 2 - 3 days; Reason: Recheck today's complaints, Continuance of care, Re-evaluation by your physician. Addendum: 07/22/2018 19:34 Co-signature as Attending Physician, Sadiq Anaya MD. g s Signatures: Valenitne Odom FNP-C FNP-Yelitza Ojeda RN RN Sadiq Anaya MD MD Corrections: (The following items were deleted from the chart) 07/19 23:19 22:49 07/19/2018 22:49 Discharged to Home. Impression: Cutaneous abscess of right lower fc limb. Condition is Stable. Forms are Medication Reconciliation Form, Thank You Letter, Antibiotic Education, Prescription Opioid Use. Follow up: Emergency Department; When: As needed; Reason: Worsening of condition. Follow up: Private Physician; When: 2 - 3 days; Reason: Recheck today's complaints, Continuance of care, Re-evaluation by your physician. kb
--- NOTE | 2018-07-19 22:49 | ER ---
Nurse's Notes [facility] Name: Coleen Haque III Age: 23 yrs Sex: Male : 1995 Arrival Date: 07/19/2018 Time: 22:17 Bed 12 Private MD: Diagnosis: Cutaneous abscess of right lower limb Presentation: 07/19 22:30 Presenting complaint: Patient states: that he got bitten by something 2 days ago to the right upper thigh. Area is red, warm and tender. Has scab to center of it. Transition of care: patient was not received from another setting of care. Onset of symptoms was July 17, 2018. Risk Assessment: Do you want to hurt yourself or someone else? Patient reports no desire to harm self or others. Initial Sepsis Screen: Does the patient meet any 2 criteria? HR > 90 bpm. Yes Does the patient have a suspected source of infection? No. Patient's initial sepsis screen is negative. Care prior to arrival: None. 22:30 Method Of Arrival: Ambulatory 22:30 Acuity: SYDNIE 4 Triage Assessment: 22:30 Bite description: bite sustained to right quadriceps is infected, was sustained 2 days fc ago. by an unknown animal, animal information: vaccination(s) is not applicable. General: Appears uncomfortable, slender, Behavior is calm, cooperative, appropriate for age. Pain: Complains of pain in right quadriceps Pain currently is 8 out of 10 on a pain scale. Quality of pain is described as aching, throbbing, Pain began gradually, Is continuous, Aggravated by palpitation. EENT: No deficits noted. Neuro: Level of Consciousness is awake, alert, obeys commands, Oriented to person, place, time, situation, Appropriate for age. Cardiovascular: No deficits noted. Respiratory: No deficits noted. GI: No deficits noted. : No deficits noted. Derm: Skin is pink, warm \T\ dry. Abscess located on right quadriceps is quarter sized, is hot to touch, is red, is raised, was lanced by patient prior to arrival. Musculoskeletal: Circulation, motion, and sensation intact. Capillary refill < 3 seconds, Range of motion: intact in all extremities. - Immunization history:: Last tetanus immunization: up to date Flu vaccine is up to date. - Social history:: Smoking status: Patient/guardian denies using tobacco, Patient/guardian denies using alcohol, street drugs. - Ebola Screening: : Patient negative for fever greater than or equal to 101.5 degrees Fahrenheit, and additional compatible Ebola Virus Disease symptoms Patient denies exposure to infectious person Patient denies travel to an Ebola-affected area in the 21 days before illness onset. Screenin:41 Abuse screen: Denies threats or abuse. Nutritional screening: No deficits noted. fc Tuberculosis screening: No symptoms or risk factors identified. Fall Risk None identified. Assessment: 22:41 Reassessment: No changes from previously documented assessment. Patient and/or family fc updated on plan of care and expected duration. Pain level reassessed. Patient is alert, oriented x 3, equal unlabored respirations, skin warm/dry/pink. 22:41 Reassessment: Valentine SAND SLINGER in to see and examine pt. fc 22:42 Derm: Skin is intact, abscess to right upper thigh. fc 23:01 Reassessment: No changes from previously documented assessment. Patient and/or family fc updated on plan of care and expected duration. Pain level reassessed. Patient is alert, oriented x 3, equal unlabored respirations, skin warm/dry/pink. Pt is awaiting med time. Vital Signs: 22:30 BP 128 / 83; Pulse 98; Resp 18; Temp 98.2(O); Pulse Ox 98% on R/A; Weight 94.35 kg (R); fc Height 5 ft. 11 in. (180.34 cm) (R); Pain 8/10; 22:30 Body Mass Index 29.01 (94.35 kg, 180.34 cm) fc ED Course: 22:17 Patient arrived in ED. es 22:30 Arm band placed on Patient placed in an exam room, on a stretcher. fc 22:38 Triage completed. fc 22:41 Patient has correct armband on for positive identification. Call light in reach. fc 22:41 No provider procedures requiring assistance completed. Patient did not have IV access fc during this emergency room visit. 22:47 Valentine Odom F[facility]-C [facility]. kb 22:47 Sadiq Anaya MD is Attending Physician. kb Administered Medications: 22:58 Drug: Bactrim (160 mg-800 mg (DS) 1 tablet Route: PO; fc 23:13 Follow up: Response: No adverse reaction; No change in condition fc 22:58 Drug: KeFLEX 500 mg Route: PO; fc 23:13 Follow up: Response: No adverse reaction; No change in condition fc Outcome: 22:49 Discharge ordered by . kb 23:19 Patient left the ED. fc Signatures: Valentine Odom, SLUBBER FRAME CHANGER-C SLUBBER FRAME CHANGER-Ckb Rocío Rosenthal Felicia, RN RN fc
[2018-07-19] MEDS ORDERED: SMZ./TMP. 800/160 MG TABLET ONE (23:06)
[2018-07-19] MEDS ORDERED: CEPHALEXIN 250 MG CAP ONE (23:06)
== END 2018-07-19 23:19 | disposition home or self-care (01) ==
LOC: ER 22:14
DX: L02.415 Cutaneous abscess of right lower limb (principal)
CPT/HCPCS: 99282

== ENCOUNTER 2018-07-21 15:07 | Emergency (ER) | payer SELFPAY ==
[2018-07-21] MEDS ORDERED: DOXYCYCLINE 100 MG CAP PO ONE (18:36)
[2018-07-21] MEDS ORDERED: LIDOCAINE 2%-JELLY **30 ML TUBE TOP SCH (19:00)
--- NOTE | 2018-07-21 19:53 | ER ---
Nurse's Notes [facility] Name: Coleen Haque III Age: 23 yrs Sex: Male : 1995 Arrival Date: 07/21/2018 Time: 15:08 Bed 11 Private MD: Diagnosis: Cellulitis of right lower limb Presentation: 07/21 16:13 Presenting complaint: Patient states: "I was seen here for some redness on my right aa5 thigh but it's getting worse today". Transition of care: patient was not received from another setting of care. Onset of symptoms was July 2018. Risk Assessment: Do you want to hurt yourself or someone else? Patient reports no desire to harm self or others. Initial Sepsis Screen: Does the patient meet any 2 criteria? No. Patient's initial sepsis screen is negative. Does the patient have a suspected source of infection? No. Patient's initial sepsis screen is negative. Care prior to arrival: None. 16:13 Method Of Arrival: Ambulatory aa5 16:13 Acuity: SYDNIE 4 aa5 Historical: - Allergies: 16:15 No Known Allergies; aa5 - PMHx: 16:15 None; aa5 - PSHx: 16:15 L knee ACL; Appendectomy; aa5 - Immunization history:: Adult Immunizations up to date. - Social history:: Smoking status: Patient/guardian denies using tobacco. - Ebola Screening: : No symptoms or risks identified at this time. Screenin:14 Abuse screen: Denies threats or abuse. Nutritional screening: No deficits noted. fc Tuberculosis screening: No symptoms or risk factors identified. Fall Risk None identified. Assessment: 17:14 General: Appears uncomfortable, slender, Behavior is calm, cooperative, appropriate for age. Pain: Complains of pain in right quadriceps Pain currently is 10 out of 10 on a pain scale. Quality of pain is described as aching, Pain began 2-3 days ago. Is continuous, Aggravated by Palpitation. Neuro: Level of Consciousness is awake, alert, obeys commands, Oriented to person, place, time, situation, Appropriate for age. Cardiovascular: No deficits noted. Respiratory: No deficits noted. GI: No deficits noted. : No deficits noted. EENT: No deficits noted. Derm: Skin is pink, warm \\T\\ dry. Abscess located on right quadriceps is but redness extends approx 3 additional inches out. Musculoskeletal: Circulation, motion, and sensation intact. Capillary refill < 3 seconds, Range of motion: intact in all extremities. 17:30 Reassessment: No changes from previously documented assessment. Patient and/or family fc updated on plan of care and expected duration. Pain level reassessed. Patient is alert, oriented x 3, equal unlabored respirations, skin warm/dry/pink. Barbara FOREST MANAGER in to see and examine pt. 18:22 Reassessment: No changes from previously documented assessment. Patient and/or family fc updated on plan of care and expected duration. Pain level reassessed. Patient is alert, oriented x 3, equal unlabored respirations, skin warm/dry/pink. Lido placed on wound as ordered. 19:20 Reassessment: No changes from previously documented assessment. Patient and/or family fc updated on plan of care and expected duration. Pain level reassessed. Patient is alert, oriented x 3, equal unlabored respirations, skin warm/dry/pink. Barbara FOREST MANAGER in to drain abscess. 19:30 Reassessment: Barbara FOREST MANAGER applied dressing to wound and pt is pending discharge. fc Vital Signs: 16:15 BP 130 / 90; Pulse 93; Resp 18 S; Temp 98.7(TE); Pulse Ox 99% on R/A; Weight 94.35 kg aa5 (R); Height 5 ft. 11 in. (180.34 cm) (R); Pain 9/10; 16:15 Body Mass Index 29.01 (94.35 kg, 180.34 cm) aa5 ED Course: 15:08 Patient arrived in ED. rg4 16:13 Arm band placed on. aa5 16:14 Triage completed. aa5 16:58 Barbara Jackson FNP-C is PHCP. snw 16:59 Davion Bonilla MD is Attending Physician. snw 17:14 Patient has correct armband on for positive identification. Bed in low position. Call fc light in reach. 19:51 No provider procedures requiring assistance completed. Patient did not have IV access fc during this emergency room visit. Administered Medications: 18:21 Drug: Lidocaine Gel 2 % 1 application {Note: to right upper thigh wound.} Route: Mucous fc Membrane; 19:52 Follow up: Response: No adverse reaction; Marked relief of symptoms; Pain is decreased fc 18:34 Drug: Doxycycline 100 mg Route: PO; 19:52 Follow up: Response: No adverse reaction; No change in condition fc Outcome: :52 Discharge ordered by . snse 20:11 Discharged to home ambulatory. fc 20:11 Condition: good 20:11 Discharge instructions given to patient, family, Instructed on discharge instructions, follow up and referral plans. no drinking with medication, no driving heavy equipment, medication usage, wound care, Demonstrated understanding of instructions, follow-up care, medications, wound care, Prescriptions given X 2. 20:12 Patient left the ED. Signatures: Barbara Jackson, DIRECTOR MEDICAL ECONOMICS-C DIRECTOR MEDICAL ECONOMICS-Csnw Yelitza Emery RN RN Eleanor Cabrera RN RN aa5 Ileana Raymond4
--- NOTE | 2018-07-21 19:53 | EDPHYS ---
Physician Documentation [facility] Name: Coleen Haque III Age: 23 yrs Sex: Male : 1995 Arrival Date: 07/21/2018 Time: 15:08 Bed 11 Private MD: ED Physician Davion Bonilla HPI: 07/21 19:49 This 23 yrs old Male presents to ER via Ambulatory with complaints of Abscess. snw 19:49 The patient presents with cellulitis of the right quadriceps. Description: snw erythematous, raised, swollen, warm. Onset: The symptoms/episode began/occurred suddenly, 3 day(s) ago, and became persistent. Possible cause(s): unknown. Associated signs and symptoms: Pertinent positives: swelling. Modifying factors: the symptoms are alleviated by nothing, the symptoms are aggravated by pressure. The patient has not experienced similar symptoms in the past. The patient has been recently seen by a physician: The patient has been recently seen at the [facility] Emergency Department, yesterday, for similar complaints was given a prescription for antibiotics. Started Bactrim and Keflex this am. Historical: - Allergies: 16:15 No Known Allergies; aa5 - PMHx: 16:15 None; aa5 - PSHx: 16:15 L knee ACL; Appendectomy; aa5 - Immunization history:: Adult Immunizations up to date. - Social history:: Smoking status: Patient/guardian denies using tobacco. - Ebola Screening: : No symptoms or risks identified at this time. ROS: 19:49 Constitutional: Negative for fever, chills, and weight loss, Eyes: Negative for injury, snw pain, redness, and discharge, ENT: Negative for injury, pain, and discharge, Neck: Negative for injury, pain, and swelling, Cardiovascular: Negative for chest pain, palpitations, and edema, Respiratory: Negative for shortness of breath, cough, wheezing, and pleuritic chest pain, Abdomen/GI: Negative for abdominal pain, nausea, vomiting, diarrhea, and constipation, Back: Negative for injury and pain, : Negative for injury, bleeding, discharge, and swelling, MS/Extremity: Negative for injury and deformity, Neuro: Negative for headache, weakness, numbness, tingling, and seizure. 19:49 Skin: Positive for abscess, cellulitis. Exam: 17:54 Constitutional: This is a well developed, well nourished patient who is awake, alert, snw and in no acute distress. Head/Face: Normocephalic, atraumatic. Eyes: Pupils equal round and reactive to light, extra-ocular motions intact. Lids and lashes normal. Conjunctiva and sclera are non-icteric and not injected. Cornea within normal limits. Periorbital areas with no swelling, redness, or edema. ENT: Nares patent. No nasal discharge, no septal abnormalities noted. Tympanic membranes are normal and external auditory canals are clear. Oropharynx with no redness, swelling, or masses, exudates, or evidence of obstruction, uvula midline. Mucous membranes moist. Neck: Trachea midline, no thyromegaly or masses palpated, and no cervical lymphadenopathy. Supple, full range of motion without nuchal rigidity, or vertebral point tenderness. No Meningismus. Chest/axilla: Normal chest wall appearance and motion. Nontender with no deformity. No lesions are appreciated. Cardiovascular: Regular rate and rhythm with a normal S1 and S2. No gallops, murmurs, or rubs. Normal PMI, no JVD. No pulse deficits. Respiratory: Lungs have equal breath sounds bilaterally, clear to auscultation and percussion. No rales, rhonchi or wheezes noted. No increased work of breathing, no retractions or nasal flaring. Abdomen/GI: Soft, non-tender, with normal bowel sounds. No distension or tympany. No guarding or rebound. No evidence of tenderness throughout. Back: No spinal tenderness. No costovertebral tenderness. Full range of motion. MS/ Extremity: Pulses equal, no cyanosis. Neurovascular intact. Full, normal range of motion. Neuro: Awake and alert, GCS 15, oriented to person, place, time, and situation. Cranial nerves II-XII grossly intact. Motor strength 5/5 in all extremities. Sensory grossly intact. Cerebellar exam normal. Normal gait. Psych: Awake, alert, with orientation to person, place and time. Behavior, mood, and affect are within normal limits. 17:54 Skin: Appearance: normal except for affected area, cellulitis, that is moderate, lesion(s), papule(s) noted, with surrounding concentric cellulitis. Vital Signs: 16:15 BP 130 / 90; Pulse 93; Resp 18 S; Temp 98.7(TE); Pulse Ox 99% on R/A; Weight 94.35 kg aa5 (R); Height 5 ft. 11 in. (180.34 cm) (R); Pain 9/10; 16:15 Body Mass Index 29.01 (94.35 kg, 180.34 cm) aa5 MDM: 16:58 Patient medically screened. snw 19:55 Data reviewed: vital signs, nurses notes. Data interpreted: Pulse oximetry: on room air snw is 99 %. Interpretation: normal. Counseling: I had a detailed discussion with the patient and/or guardian regarding: the historical points, exam findings, and any diagnostic results supporting the discharge/admit diagnosis, the need for outpatient follow up, to return to the emergency department if symptoms worsen or persist or if there are any questions or concerns that arise at home. Response to treatment: the patient's symptoms have mildly improved after treatment. Special discussion: I have referred the patient to see his PCP for further evaluation of high blood pressure. Based on the history and exam findings, there is no indication for further emergent testing or inpatient evaluation. I discussed with the patient/guardian the need to see the primary care provider for further evaluation of the symptoms. Administered Medications: 18:21 Drug: Lidocaine Gel 2 % 1 application {Note: to right upper thigh wound.} Route: Mucous fc Membrane; 19:52 Follow up: Response: No adverse reaction; Marked relief of symptoms; Pain is decreased fc 18:34 Drug: Doxycycline 100 mg Route: PO; fc 19:52 Follow up: Response: No adverse reaction; No change in condition fc Disposition: 07/22 09:56 Co-signature as Attending Physician, Davion Bonilla MD. rn Disposition: 07/21/18 19:52 Discharged to Home. Impression: Cellulitis of right lower limb. - Condition is Stable. - Discharge Instructions: Insect Bite, Cellulitis, Adult. - Prescriptions for Doxycycline Hyclate 100 mg Oral Tablet - take 1 tablet by ORAL route every 12 hours; 20 tablet. Diclofenac Sodium 75 mg Oral Tablet Sustained Release - take 1 tablet by ORAL route 2 times per day; 30 tablet. - Work release form, Medication Reconciliation Form, Thank You Letter, Antibiotic Education, Prescription Opioid Use form. - Follow up: Private Physician; When: 2 - 3 days; Reason: Recheck today's complaints, Continuance of care, Re-evaluation by your physician. Follow up: Emergency Department; When: As needed; Reason: Worsening of condition. - Notes: Please continue Bactrim and d/c Keflex Signatures: Barbara Jackson, ADVERTISING ASSISTANT-C ADVERTISING ASSISTANT-Csnw Yelitza Emery, RN RN fc Davion Bonilla MD MD rn Calderon, Audri, RN RN aa5 Corrections: (The following items were deleted from the chart) 07/21 20:12 19:52 07/21/2018 19:52 Discharged to Home. Impression: Cellulitis of right lower limb. fc Condition is Stable. Forms are Medication Reconciliation Form, Thank You Letter, Antibiotic Education, Prescription Opioid Use. Follow up: Private Physician; When: 2 - 3 days; Reason: Recheck today's complaints, Continuance of care, Re-evaluation by your physician. Follow up: Emergency Department; When: As needed; Reason: Worsening of condition. snw
== END 2018-07-21 20:12 | disposition home or self-care (01) ==
LOC: ER 15:07
DX: L03.115 Cellulitis of right lower limb (principal)
CPT/HCPCS: 99283

== ENCOUNTER 2018-08-23 09:47 | Emergency (ER) | payer SELFPAY ==
[2018-08-23] MEDS ORDERED: NA CHLORIDE 0.9% 1,000 ML ONE (10:47)
[2018-08-23 10:58] LABS: Absolute Lymphocytes (CBC) 1.6 K/uL (0.7-4.9); Absolute Monocytes 0.5 K/uL (0.1-1.3); Absolute Neutrophil 3.4 K/uL (1.8-8.0); Basophils % 0.6 % (0-1.3); Eosinophils % 3.4 % (0-4.4); Hematocrit 48.2 % (39.6-49.0); Lymphocytes % 27.9 % (15.3-44.8); MPV 7.5 fL (7.6-11.3); Monocytes % 9.4 % (3.3-12.3); RBC Red Blood Cell Count 5.56 M/uL (4.33-5.43)
[2018-08-23 11:14] LABS: ALT/SGPT 35 U/L (12-78); AST/SGOT 14 U/L (15-37); Alkaline Phosphatase 102 U/L (45-117); BUN Blood Urea Nitrogen 12 mg/dL (7-18); Bicarbonate 30 mmol/L (21-32); Bilirubin Direct < 0.1 mg/dL (0-0.2); Bilirubin Total 0.3 mg/dL (0.2-1.0); Glucose Level 86 mg/dL (74-106); Potassium 4.1 mmol/L (3.5-5.1); Protein, Total 7.8 g/dL (6.4-8.2); Sodium Level 142 mmol/L (136-145)
--- NOTE | 2018-08-23 11:46 | EDPHYS ---
Physician Documentation [facility] Name: Coleen Haque III Age: 23 yrs Sex: Male : 1995 Arrival Date: 08/23/2018 Time: 09:49 Bed 17 Private MD: None, None ED Physician Sadiq Anaya HPI: 08/23 11:03 This 23 yrs old Male presents to ER via Ambulatory with complaints of N/V/D jr8 and abdominal cramping. 11:03 The patient presents to the emergency department with nausea, vomiting, diarrhea, jr8 abdominal pain, of the abdomen diffusely, described as crampy, and does not radiate. Onset: The symptoms/episode began/occurred acutely, 4 day(s) ago. Possible causes: unknown. The symptoms are aggravated by nothing. The symptoms are alleviated by nothing. Associated signs and symptoms: The patient has no apparent associated signs or symptoms. Severity of symptoms: At their worst the symptoms were moderate in the emergency department the symptoms have improved moderately. The patient has not experienced similar symptoms in the past. The patient has not recently seen a physician. Started with symptoms on Monday. By Monday was feeling better. Stated that he no longer has any diarrhea but vomited once this AM. Also notices rash on back of neck . Historical: - Allergies: 10:19 No Known Allergies; aa5 - PMHx: 10:19 None; aa5 - PSHx: 10:19 L knee ACL; Appendectomy; aa5 - Immunization history:: Flu vaccine is up to date. - Social history:: Smoking status: Patient/guardian denies using tobacco. - Ebola Screening: : No symptoms or risks identified at this time. ROS: 11:03 Eyes: Negative for injury, pain, redness, and discharge, ENT: Negative for injury, jr8 pain, and discharge, Neck: Negative for injury, pain, and swelling, Cardiovascular: Negative for chest pain, palpitations, and edema, Respiratory: Negative for shortness of breath, cough, wheezing, and pleuritic chest pain, Back: Negative for injury and pain, MS/Extremity: Negative for injury and deformity, Neuro: Negative for headache, weakness, numbness, tingling, and seizure. 11:03 Abdomen/GI: Positive for nausea, vomiting, and diarrhea, abdominal cramps, Negative for abdominal distension, anorexia, dysphagia, hematemesis, black/tarry stool, rectal pain, rectal bleeding, bowel incontinence, flatulence. 11:03 Skin: Positive for rash. Exam: 11:03 Eyes: Pupils equal round and reactive to light, extra-ocular motions intact. Lids and jr8 lashes normal. Conjunctiva and sclera are non-icteric and not injected. Cornea within normal limits. Periorbital areas with no swelling, redness, or edema. ENT: Nares patent. No nasal discharge, no septal abnormalities noted. Tympanic membranes are normal and external auditory canals are clear. Oropharynx with no redness, swelling, or masses, exudates, or evidence of obstruction, uvula midline. Mucous membranes moist. Neck: Trachea midline, no thyromegaly or masses palpated, and no cervical lymphadenopathy. Supple, full range of motion without nuchal rigidity, or vertebral point tenderness. No Meningismus. Cardiovascular: Regular rate and rhythm with a normal S1 and S2. No gallops, murmurs, or rubs. Normal PMI, no JVD. No pulse deficits. Respiratory: Lungs have equal breath sounds bilaterally, clear to auscultation and percussion. No rales, rhonchi or wheezes noted. No increased work of breathing, no retractions or nasal flaring. Abdomen/GI: Soft, non-tender, with normal bowel sounds. No distension or tympany. No guarding or rebound. No evidence of tenderness throughout. Back: No spinal tenderness. No costovertebral tenderness. Full range of motion. MS/ Extremity: Pulses equal, no cyanosis. Neurovascular intact. Full, normal range of motion. Neuro: Awake and alert, GCS 15, oriented to person, place, time, and situation. Cranial nerves II-XII grossly intact. Motor strength 5/5 in all extremities. Sensory grossly intact. Cerebellar exam normal. Normal gait. 11:03 Skin: Patient has small macular rash to shoulders and around neck with larger confluent patch to posterior neck. Mayen and dry/scaly in appearance . Vital Signs: 10:45 BP 123 / 95; Pulse 69; Resp 16; Pulse Ox 97% ; jl7 11:41 BP 111 / 79; Pulse 65; Resp 16 S; Temp 98.3; Pulse Ox 100% on R/A; Pain 0/10; jl7 MDM: 10:11 Patient medically screened. jr8 11:03 Data reviewed: vital signs, nurses notes, lab test result(s), and as a result, I will jr8 discharge patient. Data interpreted: Pulse oximetry: on room air is 97 %. Interpretation: normal. Counseling: I had a detailed discussion with the patient and/or guardian regarding: the historical points, exam findings, and any diagnostic results supporting the discharge/admit diagnosis, lab results, the need for outpatient follow up, a family practitioner, to return to the emergency department if symptoms worsen or persist or if there are any questions or concerns that arise at home. 08/23 10:34 Order name: CBC with Diff; Complete Time: 11:02 8 08/23 10:34 Order name: Basic Metabolic Panel; Complete Time: 11:23 8 08/23 10:34 Order name: IV; Complete Time: 10:44 8 08/23 10:34 Order name: LFT's; Complete Time: 11:23 [facility] Administered Medications: 10:44 Drug: NS 0.9% 1000 ml Route: IV; Rate: 1000 ml; Site: right antecubital; [facility] 11:42 Follow up: IV Status: Completed infusion; IV Intake: 1000ml jl7 Disposition: 08/23/18 11:45 Discharged to Home. Impression: Gastroenteritis, Pityriasis versicolor. - Condition is Stable. - Discharge Instructions: Tinea Versicolor, Viral Gastroenteritis, Adult. - Prescriptions for ketoconazole 2 % Topical shampoo - apply 1 application by TOPICAL route 2 times per wk with at least 3 days between each shampooing for one month; 1 bottle. Bentyl 20 mg Oral Tablet - take 1 tablet by ORAL route every 6 hours As needed; 20 tablet. Zofran 4 mg Oral Tablet - take 1 tablet by ORAL route every 12 hours As needed; 20 tablet. - Medication Reconciliation Form, Thank You Letter, Antibiotic Education, Prescription Opioid Use, Work release form form. - Follow up: Private Physician; When: 1 week; Reason: Recheck today's complaints, Continuance of care, Re-evaluation by your physician. - Problem is new. - Symptoms have improved. Addendum: 08/26/2018 00:10 Co-signature as Attending Physician, Sadiq Anaya MD. g s Signatures: Dispatcher [employer] Eleanor Velazquez, RN RN aa5 Serge Brown PA PA jr8 Janessa Guardado RN RN jl7 Sadiq Anaya MD MD gs Corrections: (The following items were deleted from the chart) 08/23 12:14 11:45 08/23/2018 11:45 Discharged to Home. Impression: Gastroenteritis; Pityriasis jl7 versicolor. Condition is Stable. Prescriptions for ketoconazole 2 % Topical shampoo - apply 1 application by TOPICAL route 2 times per wk with at least 3 days between each shampooing for one month; 1 bottle. and Forms are Medication Reconciliation Form, Thank You Letter, Antibiotic Education, Prescription Opioid Use. Follow up: Private Physician; When: 1 week; Reason: Recheck today's complaints, Continuance of care, Re-evaluation by your physician. Problem is new. Symptoms have improved. jr8
--- NOTE | 2018-08-23 11:46 | ER ---
Nurse's Notes [facility] Name: Coleen Haque III Age: 23 yrs Sex: Male : 1995 Arrival Date: 08/23/2018 Time: 09:49 Bed 17 Private MD: None, None Diagnosis: Gastroenteritis;Pityriasis versicolor Presentation: 08/23 10:12 Presenting complaint: Patient states: nausea/vomiting/diarrhea Monday and Monday, aa5 denies any today. Pt denies abd pain. Pt c/o feeling dizzy and feeling lightheaded. 10:12 Transition of care: patient was not received from another setting of care. aa5 10:12 Method Of Arrival: Ambulatory aa5 10:12 Acuity: SYDNIE 3 aa5 10:12 Onset of symptoms was August 2018. Risk Assessment: Do you want to hurt yourself or aa5 someone else? Patient reports no desire to harm self or others. Initial Sepsis Screen: Does the patient meet any 2 criteria? No. Patient's initial sepsis screen is negative. Does the patient have a suspected source of infection? No. Patient's initial sepsis screen is negative. Care prior to arrival: None. Historical: - Allergies: 10:19 No Known Allergies; aa5 - PMHx: 10:19 None; aa5 - PSHx: 10:19 L knee ACL; Appendectomy; aa5 - Immunization history:: Flu vaccine is up to date. - Social history:: Smoking status: Patient/guardian denies using tobacco. - Ebola Screening: : No symptoms or risks identified at this time. Screenin:46 Abuse screen: Denies threats or abuse. Denies injuries from another. Nutritional jl7 screening: No deficits noted. Tuberculosis screening: No symptoms or risk factors identified. Fall Risk IV access (20 points). Total Oliva Fall Scale indicates No Risk (0-24 pts). Assessment: 10:46 General: Appears in no apparent distress. uncomfortable. Pain: Denies pain. Neuro: jl7 Level of Consciousness is awake, alert, obeys commands, Oriented to person, place, time, situation. Cardiovascular: Patient's skin is warm and dry. Respiratory: Airway is patent Respiratory effort is even, unlabored, Respiratory pattern is regular, symmetrical. GI: Abdomen is flat, non-distended, Bowel sounds present X 4 quads. Abd is soft and non tender Reports vomiting, since Monday Patient currently denies diarrhea, nausea. : No signs and/or symptoms were reported regarding the genitourinary system. Derm: Rash noted that is raised, on posterior aspect of neck. 11:41 Reassessment: Patient appears in no apparent distress at this time. No changes from jl7 previously documented assessment. Patient and/or family updated on plan of care and expected duration. Pain level reassessed. Patient is alert, oriented x 3, equal unlabored respirations, skin warm/dry/pink. Patient denies pain at this time. Vital Signs: 10:45 BP 123 / 95; Pulse 69; Resp 16; Pulse Ox 97% ; jl7 11:41 BP 111 / 79; Pulse 65; Resp 16 S; Temp 98.3; Pulse Ox 100% on R/A; Pain 0/10; jl7 ED Course: 09:49 Patient arrived in ED. mr 09:49 None, None is Private Physician. mr 10:07 Arm band placed on Patient placed in an exam room, on a stretcher. aa5 10:10 Serge Brown PA is PHCP. jr8 10:10 Sadiq Anaya MD is Attending Physician. jr8 10:19 Triage completed. aa5 10:30 Janessa Guardado, NED is Primary Nurse. jl7 10:46 Patient has correct armband on for positive identification. Placed in gown. Bed in low jl7 position. Call light in reach. Side rails up X 1. Pulse ox on. NIBP on. 10:46 Initial lab(s) drawn, by me, sent to lab. Inserted saline lock: 20 gauge in right jl7 antecubital area, using aseptic technique. Blood collected. 12:14 No provider procedures requiring assistance completed. IV discontinued, intact, jl7 bleeding controlled, No redness/swelling at site. Pressure dressing applied. Administered Medications: 10:44 Drug: NS 0.9% 1000 ml Route: IV; Rate: 1000 ml; Site: right antecubital; jl7 11:42 Follow up: IV Status: Completed infusion; IV Intake: 1000ml jl7 Intake: 11:42 IV: 1000ml; Total: 1000ml. jl7 Outcome: 11:45 Discharge ordered by . jr8 12:14 Discharged to home ambulatory. jl7 12:14 Condition: stable 12:14 Discharge instructions given to patient, Instructed on discharge instructions, follow up and referral plans. medication usage, Demonstrated understanding of instructions, follow-up care, medications, Prescriptions given X 3. 12:14 Patient left the ED. jl7 Signatures: Sandrita Yen mr CabreraEleanor, RN RN aa5 Serge Brown PA PA jr8 Janessa Guardado RN RN jl7
== END 2018-08-23 12:14 | disposition home or self-care (01) ==
LOC: ER 09:47
DX: K52.9 Noninfective gastroenteritis and colitis, unspecified (principal); B36.0 Pityriasis versicolor
CPT/HCPCS: 36415; 80048; 80076; 85025; 96360; 99284; J7030

== ENCOUNTER 2018-12-28 18:29 | Emergency (ER) | payer SELFPAY ==
--- NOTE | 2018-12-28 19:46 | ER ---
Nurse's Notes [facility] Name: Coleen Haque III Age: 23 yrs Sex: Male : 1995 Arrival Date: 12/28/2018 Time: 18:33 Bed 25 Private MD: None, None Diagnosis: Tinea versicolor Presentation: 12/28 18:44 Presenting complaint: Patient states: I woke up this morning with a rash and some la1 nausea. Transition of care: patient was not received from another setting of care. Onset of symptoms was December 28, 2018. Risk Assessment: Do you want to hurt yourself or someone else? Patient reports no desire to harm self or others. Initial Sepsis Screen: Does the patient meet any 2 criteria? No. Patient's initial sepsis screen is negative. Does the patient have a suspected source of infection? No. Patient's initial sepsis screen is negative. Care prior to arrival: None. 18:44 Method Of Arrival: Ambulatory la1 18:44 Acuity: SYDNIE 4 la1 Historical: - Allergies: 18:45 No Known Allergies; la1 - PMHx: 18:45 None; la1 - Immunization history:: Adult Immunizations up to date. - Social history:: Smoking status: Patient/guardian denies using tobacco. - Ebola Screening: : No symptoms or risks identified at this time. Screenin:56 Abuse screen: Denies threats or abuse. Denies injuries from another. Nutritional mg2 screening: No deficits noted. Tuberculosis screening: No symptoms or risk factors identified. Fall Risk None identified. Assessment: 19:54 General: Appears in no apparent distress. comfortable, Behavior is calm, cooperative. mg2 Pain: Denies pain. Neuro: Level of Consciousness is awake, alert, obeys commands, Oriented to person, place, time, situation. Cardiovascular: Capillary refill < 3 seconds Patient's skin is warm and dry. Respiratory: Airway is patent Respiratory effort is even, unlabored, Respiratory pattern is regular, symmetrical. GI: No signs and/or symptoms were reported involving the gastrointestinal system. : No signs and/or symptoms were reported regarding the genitourinary system. EENT: No signs and/or symptoms were reported regarding the EENT system. Derm: Skin is intact, is healthy with good turgor. Musculoskeletal: Circulation, motion, and sensation intact. Capillary refill < 3 seconds. Vital Signs: 18:45 BP 124 / 82; Pulse 75; Resp 16; Temp 97.4; Pulse Ox 98% on R/A; Weight 92.99 kg; Height la1 5 ft. 10 in. (177.80 cm); 19:56 BP 122 / 78; Pulse 80; Resp 18; Temp 98; Pulse Ox 100% on R/A; mg2 18:45 Body Mass Index 29.41 (92.99 kg, 177.80 cm) la1 ED Course: 18:33 Patient arrived in ED. mr 18:33 None, None is Private Physician. mr 18:44 Triage completed. la1 19:09 Sabas Demarco PA is PHCP. cp 19:09 Sabas Kaplan MD is Attending Physician. cp 19:43 Wilian Trevino MD is Referral Physician. cp 19:46 Alex Fu, NED is Primary Nurse. mg2 19:56 No provider procedures requiring assistance completed. Patient did not have IV access mg2 during this emergency room visit. 19:57 Patient has correct armband on for positive identification. Door closed. mg2 19:57 Arm band placed on. mg2 Administered Medications: No medications were administered Outcome: 19:44 Discharge ordered by MD. cp 19:57 Discharged to home ambulatory, with family. mg2 19:57 Condition: stable 19:57 Discharge instructions given to patient, family, Instructed on discharge instructions, follow up and referral plans. medication usage, Demonstrated understanding of instructions, follow-up care, medications, Prescriptions given X 1. 19:58 Patient left the ED. mg2 Signatures: Sandrita Yen mr Hossein Arriaga, RN RN la1 Sabas Demarco PA PA cp Alex Fu, RN RN mg2
--- NOTE | 2018-12-28 19:46 | EDPHYS ---
Physician Documentation [facility] Name: Coleen Haque III Age: 23 yrs Sex: Male : 1995 Arrival Date: 12/28/2018 Time: 18:33 Bed 25 Private MD: None, None ED Physician Sabas Kaplan HPI: 12/28 19:24 This 23 yrs old Male presents to ER via Ambulatory with complaints of Skin cp Problem. 19:25 The patient's rash thought to be caused by an unknown cause. cp 19:25 The rash is located on the back, chest and neck. The rash can be described as macular, cp patchy, hyperpigmented. Onset: The symptoms/episode began/occurred 1 month(s) ago. Associated signs and symptoms: Pertinent negatives: burning sensation, difficulty breathing, fever, itching. Severity of symptoms: in the emergency department the symptoms are unchanged despite home interventions. Historical: - Allergies: 18:45 No Known Allergies; la1 - PMHx: 18:45 None; la1 - Immunization history:: Adult Immunizations up to date. - Social history:: Smoking status: Patient/guardian denies using tobacco. - Ebola Screening: : No symptoms or risks identified at this time. ROS: 19:30 Constitutional: Negative for body aches, chills, fever, poor PO intake. cp 19:30 Eyes: Negative for injury, pain, redness, and discharge. cp 19:30 ENT: Negative for drainage from ear(s), ear pain, sore throat, difficulty swallowing, difficulty handling secretions. 19:30 Cardiovascular: Negative for chest pain. 19:30 Respiratory: Negative for cough, shortness of breath, wheezing. 19:30 Abdomen/GI: Negative for abdominal pain. 19:30 Skin: Positive for rash, of the back, chest and neck. 19:30 All other systems are negative. Exam: 19:35 Constitutional: The patient appears in no acute distress, alert, awake, non-toxic, well cp developed, well nourished. 19:35 Head/Face: Normocephalic, atraumatic. cp 19:35 ENT: External ear(s): are unremarkable, Nose: is normal, Mouth: Lips: moist, Oral mucosa: moist, Posterior pharynx: Airway: no evidence of obstruction, patent. 19:35 Cardiovascular: Rate: normal. 19:35 Respiratory: the patient does not display signs of respiratory distress, Respirations: normal. 19:35 Skin: rash can be described as macular, hyperpigmented, patchy, on the neck and chest and back. Vital Signs: 18:45 BP 124 / 82; Pulse 75; Resp 16; Temp 97.4; Pulse Ox 98% on R/A; Weight 92.99 kg; Height la1 5 ft. 10 in. (177.80 cm); 19:56 BP 122 / 78; Pulse 80; Resp 18; Temp 98; Pulse Ox 100% on R/A; mg2 18:45 Body Mass Index 29.41 (92.99 kg, 177.80 cm) la1 MDM: 19:13 Patient medically screened. [facility] 19:43 Data reviewed: vital signs, nurses notes, and as a result, I will discharge patient. 19:43 Differential diagnosis: allergic reaction, eczema, scabies. Counseling: I had a cp detailed discussion with the patient and/or guardian regarding: the historical points, exam findings, and any diagnostic results supporting the discharge/admit diagnosis, to return to the emergency department if symptoms worsen or persist or if there are any questions or concerns that arise at home. Administered Medications: No medications were administered Disposition: 12/29 09:12 Co-signature as Attending Physician, Sabas Kaplan MD I agree with the assessment and [facility] plan of care. Disposition: 12/28/18 19:44 Discharged to Home. Impression: Tinea versicolor. - Condition is Stable. - Discharge Instructions: Tinea Versicolor. - Prescriptions for Fluconazole 200 mg Oral Tablet - take 2 tablets by ORAL route as directed take 2 tablets as one time dose, strenuous exercise, and do not shower or bathe for 12 hours; 2 tablet. - Work release form, Medication Reconciliation Form, Thank You Letter, Antibiotic Education, Prescription Opioid Use form. - Follow up: Wilian Trevino MD; When: 1 week; Reason: Worsening of condition. - Problem is new. - Symptoms are unchanged. Signatures: Sabas Kaplan MD MD cha Attema, Lee RN RN la1 Sabas Demarco PA PA cp Gardose, Michele RN RN mg2 Corrections: (The following items were deleted from the chart) 12/28 19:58 19:44 12/28/2018 19:44 Discharged to Home. Impression: Tinea versicolor. Condition is mg2 Stable. Discharge Instructions: Tinea Versicolor. Prescriptions for Fluconazole 200 mg Oral Tablet - take 2 tablets by ORAL route as directed take 2 tablets as one time dose, strenuous exercise, and do not shower or bathe for 12 hours; 2 tablet. and Forms are Medication Reconciliation Form, Thank You Letter, Antibiotic Education, Prescription Opioid Use. Follow up: Wilian Trevino; When: 1 week; Reason: Worsening of condition. Problem is new. Symptoms are unchanged. cp
== END 2018-12-28 19:58 | disposition home or self-care (01) ==
LOC: ER 18:29
DX: B36.0 Pityriasis versicolor (principal)
CPT/HCPCS: 99282

== ENCOUNTER 2019-01-31 08:08 | Emergency (ER) | payer SELFPAY ==
--- NOTE | 2019-01-31 23:13 | ER ---
Nurse's Notes [facility] Name: Coleen Haque III Age: 23 yrs Sex: Male : 1995 Arrival Date: 01/31/2019 Time: 20:12 Bed 25 Private MD: Diagnosis: Abscess, furuncle and carbuncle of nose Presentation: 01/31 20:37 Presenting complaint: Patient states: "I woke up with my nose swollen, its been going aj1 on for more than a week already. I've been taking DayQuil NyQuil, Tylenol and Motrin but none of its helping" Denies fever. Redness and swelling noted to left side of nose. Transition of care: patient was not received from another setting of care. Onset of symptoms was January 2019. Risk Assessment: Do you want to hurt yourself or someone else? Patient reports no desire to harm self or others. Initial Sepsis Screen: Does the patient meet any 2 criteria? No. Patient's initial sepsis screen is negative. Does the patient have a suspected source of infection? No. Patient's initial sepsis screen is negative. Care prior to arrival: None. 20:37 Method Of Arrival: Ambulatory aj1 20:37 Acuity: SYDNIE 4 aj1 Triage Assessment: 20:38 General: Appears in no apparent distress. uncomfortable, Behavior is calm, cooperative, aj1 appropriate for age. Pain: Complains of pain in nose Pain currently is 10 out of 10 on a pain scale. Neuro: Level of Consciousness is awake, alert, obeys commands. Cardiovascular: Patient's skin is warm and dry. Respiratory: Airway is patent Respiratory effort is even, unlabored, Respiratory pattern is regular, symmetrical. Historical: - Allergies: 20:38 No Known Allergies; aj1 - Home Meds: 20:38 None [Active]; aj1 - PMHx: 20:38 None; aj1 - PSHx: 20:38 Appendectomy; ACL repair; aj1 - Immunization history:: Flu vaccine is up to date. - Social history:: Smoking status: Patient/guardian denies using tobacco. - Ebola Screening: : Patient denies travel to an Ebola-affected area in the 21 days before illness onset. Screenin:51 Abuse screen: Denies threats or abuse. Denies injuries from another. Nutritional ak1 screening: No deficits noted. Tuberculosis screening: No symptoms or risk factors identified. Fall Risk None identified. Assessment: 21:49 General: Appears in no apparent distress. Behavior is calm, cooperative. Neuro: No ak1 deficits noted. Cardiovascular: No deficits noted. Respiratory: Airway is patent Respiratory effort is even, unlabored, Respiratory pattern is regular, symmetrical, Breath sounds are clear bilaterally. Respiratory: Reports cough that is non-productive, since 2 weeks [employer]. GI: No signs and/or symptoms were reported involving the gastrointestinal system. : No signs and/or symptoms were reported regarding the genitourinary system. EENT: Nares redness and abscess to right side of nose X2 days. Derm: No signs and/or symptoms reported regarding the dermatologic system. Musculoskeletal: No signs and/or symptoms reported regarding the musculoskeletal system. Vital Signs: 20:38 BP 136 / 98; Pulse 89; Resp 18; Temp 98.2; Pulse Ox 98% on R/A; Weight 94.35 kg (R); 1 Height 5 ft. 10 in. (177.80 cm) (R); Pain 10/10; 21:51 BP 131 / 86; Pulse 86; Resp 18; Pulse Ox 98% on R/A; ak1 02/01 00:51 BP 118 / 77; Pulse 82; Resp 18; Pulse Ox 100% on R/A; ak1 01/31 20:38 Body Mass Index 29.84 (94.35 kg, 177.80 cm) [facility] ED Course: 01/31 20:12 Patient arrived in ED. cl3 20:38 Triage completed. aj1 20:38 Arm band placed on Patient placed in waiting room, Patient notified of wait time. aj1 21:46 Aelxa Hedrick, RN is Primary Nurse. ak1 21:51 Patient has correct armband on for positive identification. Bed in low position. Call ak1 light in reach. Side rails up X 1. Adult w/ patient. Pulse ox on. NIBP on. 21:52 No provider procedures requiring assistance completed. ak1 22:18 Sabas Kaplan MD is Attending Physician. [facility] 23:12 Juana Baer MD is Referral Physician. [facility] 02/01 00:52 Patient did not have IV access during this emergency room visit. ak1 Administered Medications: 01/31 23:05 CANCELLED (Duplicate Order): Doxycycline 100 mg PO once [facility] 23:21 Drug: Bactrim (160 mg-800 mg (DS) 1 tablet Route: PO; ak1 23:33 Follow up: Response: No adverse reaction ak1 23:21 Drug: Doxycycline 200 mg Route: PO; ak1 23:33 Follow up: Response: No adverse reaction ak1 23:21 Drug: Lidocaine-Epinephrine -1%: (1:100,000) 2 ml {Note: at bedside for Dr. Kaplan.} ak1 Volume: 20 ml; Route: Infiltration; 02/01 00:51 Drug: Bactroban Ointment 2 % 1 application Route: Topical; Site: face; ak1 00:51 Follow up: Response: No adverse reaction ak1 Point of Care Testing: Blood Glucose: 01/31 23: Blood Glucose: 85 mg/dL; lt1 Ranges: Outcome: 23:12 Discharge ordered by . [facility] 02/01 00:52 Discharged to home ambulatory, with family. ak1 Condition: good Discharge instructions given to patient, family, Instructed on discharge instructions, follow up and referral plans. no drinking with medication, no driving heavy equipment, medication usage, wound care, Demonstrated understanding of instructions, follow-up care, medications, wound care, Prescriptions given X 3. 00:56 Patient left the ED. ak1 Signatures: Mariel Caban RN RN Sabas Zelaya MD MD cha Krenek, Amber, RN RN ak1 Giselle Krishna lt1 Usman Scott cl3
--- NOTE | 2019-01-31 23:13 | EDPHYS ---
Physician Documentation [facility] Name: Coleen Haque III Age: 23 yrs Sex: Male : 1995 Arrival Date: 01/31/2019 Time: 20:12 Bed 25 Private MD: ED Physician Sabas Kaplan HPI: 01/31 23:07 This 23 yrs old Male presents to ER via Ambulatory with complaints of Nose anh Pain. 23:07 The patient presents with nasal drainage. Onset: The symptoms/episode began/occurred 3 anh day(s) ago. Modifying factors: The symptoms are alleviated by nothing. the symptoms are aggravated by blowing nose. Associated signs and symptoms: The patient has no apparent associated signs or symptoms. Historical: - Allergies: 20:38 No Known Allergies; aj1 - Home Meds: 20:38 None [Active]; aj1 - PMHx: 20:38 None; aj1 - PSHx: 20:38 Appendectomy; ACL repair; aj1 - Immunization history:: Flu vaccine is up to date. - Social history:: Smoking status: Patient/guardian denies using tobacco. - Ebola Screening: : Patient denies travel to an Ebola-affected area in the 21 days before illness onset. ROS: 23:07 Constitutional: Negative for fever, chills, and weight loss, Eyes: Negative for injury, anh pain, redness, and discharge, ENT: Negative for injury, pain, and discharge, Neck: Negative for injury, pain, and swelling, Cardiovascular: Negative for chest pain, palpitations, and edema, Respiratory: Negative for shortness of breath, cough, wheezing, and pleuritic chest pain, Abdomen/GI: Negative for abdominal pain, nausea, vomiting, diarrhea, and constipation, Back: Negative for injury and pain, : Negative for injury, bleeding, discharge, and swelling, MS/Extremity: Negative for injury and deformity, Neuro: Negative for headache, weakness, numbness, tingling, and seizure, Psych: Negative for depression, anxiety, suicide ideation, homicidal ideation, and hallucinations, Allergy/Immunology: Negative for hives, rash, and allergies, Endocrine: Negative for neck swelling, polydipsia, polyuria, polyphagia, and marked weight changes, Hematologic/Lymphatic: Negative for swollen nodes, abnormal bleeding, and unusual bruising. 23:07 Skin: Positive for abscess, cellulitis. Exam: 23:07 Constitutional: This is a well developed, well nourished patient who is awake, alert, anh and in no acute distress. Head/Face: Normocephalic, atraumatic. Eyes: Pupils equal round and reactive to light, extra-ocular motions intact. Lids and lashes normal. Conjunctiva and sclera are non-icteric and not injected. Cornea within normal limits. Periorbital areas with no swelling, redness, or edema. Neck: Trachea midline, no thyromegaly or masses palpated, and no cervical lymphadenopathy. Supple, full range of motion without nuchal rigidity, or vertebral point tenderness. No Meningismus. Chest/axilla: Normal chest wall appearance and motion. Nontender with no deformity. No lesions are appreciated. Cardiovascular: Regular rate and rhythm with a normal S1 and S2. No gallops, murmurs, or rubs. Normal PMI, no JVD. No pulse deficits. Respiratory: Lungs have equal breath sounds bilaterally, clear to auscultation and percussion. No rales, rhonchi or wheezes noted. No increased work of breathing, no retractions or nasal flaring. Abdomen/GI: Soft, non-tender, with normal bowel sounds. No distension or tympany. No guarding or rebound. No evidence of tenderness throughout. Back: No spinal tenderness. No costovertebral tenderness. Full range of motion. Male : Normal genitalia with no discharge or lesions. Skin: Warm, dry with normal turgor. Normal color with no rashes, no lesions, and no evidence of cellulitis. MS/ Extremity: Pulses equal, no cyanosis. Neurovascular intact. Full, normal range of motion. Neuro: Awake and alert, GCS 15, oriented to person, place, time, and situation. Cranial nerves II-XII grossly intact. Motor strength 5/5 in all extremities. Sensory grossly intact. Cerebellar exam normal. Normal gait. Psych: Awake, alert, with orientation to person, place and time. Behavior, mood, and affect are within normal limits. 23:07 ENT: Nose: External nose: erythema is noted, swelling is noted. Vital Signs: 20:38 BP 136 / 98; Pulse 89; Resp 18; Temp 98.2; Pulse Ox 98% on R/A; Weight 94.35 kg (R); aj1 Height 5 ft. 10 in. (177.80 cm) (R); Pain 10/; 21:51 BP 131 / 86; Pulse 86; Resp 18; Pulse Ox 98% on R/A; ak1 02/01 00:51 BP 118 / 77; Pulse 82; Resp 18; Pulse Ox 100% on R/A; ak1 01/31 20:38 Body Mass Index 29.84 (94.35 kg, 177.80 cm) [facility] MDM: 01/31 22:18 Patient medically screened. [facility] 01/31 23:07 Order name: Wound Culture [facility] 01/31 23:37 Order name: Glucose, Ancillary Testing EDMS 01/31 23:05 Order name: Blood Glucose Level; Complete Time: 23:33 [facility] 01/31 23:07 Order name: Dressing - Wound; Complete Time: 00:50 [facility] 01/31 23:07 Order name: Gloves, Sterile; Complete Time: 23:33 [facility] 01/31 23:07 Order name: Setup Suture Tray; Complete Time: 23:33 [facility] Administered Medications: 23:05 CANCELLED (Duplicate Order): Doxycycline 100 mg PO once [facility] 23:21 Drug: Bactrim (160 mg-800 mg (DS) 1 tablet Route: PO; ak1 23:33 Follow up: Response: No adverse reaction [facility] 23:21 Drug: Doxycycline 200 mg Route: PO; ak1 23:33 Follow up: Response: No adverse reaction ky1 23:21 Drug: Lidocaine-Epinephrine -1%: (1:100,000) 2 ml {Note: at bedside for Dr. Kaplan.} ak Volume: 20 ml; Route: Infiltration; 02/01 00:51 Drug: Bactroban Ointment 2 % 1 application Route: Topical; Site: face; ak1 00:51 Follow up: Response: No adverse reaction ak1 Point of Care Testing: Blood Glucose: 01/31 23:27 Blood Glucose: 85 mg/dL; lt1 Ranges: Critical Glucose Levels:Adult <50 mg/dl or >400 mg/dl <40 mg/dl or >180 mg/dl Disposition: 01/31/19 23:12 Discharged to Home. Impression: Abscess, furuncle and carbuncle of nose. - Condition is Stable. - Discharge Instructions: Skin Abscess, Cellulitis, Adult, Incision and Drainage, Skin Abscess, [id number], Cellulitis, Adult, [id number], Incision and Drainage, Care After. - Prescriptions for Bactroban 2 % Topical Ointment - Apply to affected area 1 application by TOPICAL route every 12 hours; 15 gram. Doxycycline Hyclate 100 mg Oral Tablet - take 1 tablet by ORAL route every 12 hours; 20 tablet. Bactrim DS 800- 160 mg Oral Tablet - take 1 tablet by ORAL route every 12 hours for 10 days; 20 tablet. - Medication Reconciliation Form, Thank You Letter, Antibiotic Education, Prescription Opioid Use, Work release form form. - Follow up: Private Physician; When: 2 - 3 days; Reason: Recheck today's complaints, Continuance of care, Re-evaluation by your physician. Follow up: Juana Baer; When: 2 - 3 days; Reason: Recheck today's complaints, Re-evaluation by your physician. - Problem is new. - Symptoms have improved. Signatures: Dispatcher [employer] EDMS Mariel Caban RN RN aj1 Sabas Kaplan MD MD cha Krenek, Amber RN RN ak1 Corrections: (The following items were deleted from the chart) 23:05 23:05 Doxycycline 100 mg PO once ordered. anh kamara 02/01 00:56 01/31 23:12 01/31/2019 23:12 Discharged to Home. Impression: Abscess, furuncle and ak1 carbuncle of nose. Condition is Stable. Discharge Instructions: Skin Abscess, Cellulitis, Adult, Incision and Drainage, Skin Abscess, [id number], Cellulitis, Adult, [id number], Incision and Drainage, Care After. Prescriptions for Bactroban 2 % Topical Ointment - Apply to affected area 1 application by TOPICAL route every 12 hours; 15 gram, Doxycycline Hyclate 100 mg Oral Tablet - take 1 tablet by ORAL route every 12 hours; 20 tablet, Bactrim DS 800-160 mg Oral Tablet - take 1 tablet by ORAL route every 12 hours for 10 days; 20 tablet. and Forms are Medication Reconciliation Form, Thank You Letter, Antibiotic Education, Prescription Opioid Use. Follow up: Private Physician; When: 2 - 3 days; Reason: Recheck today's complaints, Continuance of care, Re-evaluation by your physician. Follow up: Juana Baer; When: 2 - 3 days; Reason: Recheck today's complaints, Re-evaluation by your physician. Problem is new. Symptoms have improved. anh
[2019-01-31] MEDS ORDERED: LIDOCAINE 1% W/EPI 1:100,000 MDV 20 ML VIAL ONE (23:18)
[2019-01-31] MEDS ORDERED: SMZ./TMP. 800/160 MG TABLET ONE (23:18)
[2019-01-31] MEDS ORDERED: DOXYCYCLINE 100 MG CAP PO ONE (23:18)
[2019-01-31] MEDS ORDERED: MUPIROCIN 2% OINT 22GM TUBE TOP ONE (23:19)
== END 2019-02-01 00:56 | disposition home or self-care (01) ==
LOC: ER 20:08
DX: J34.0 Abscess, furuncle and carbuncle of nose (principal)
CPT/HCPCS: 82962; 87070; 87077; 87186; 87205; 99283